=== PATIENT | female | born 1985 | race Caucasian/White ===

== ENCOUNTER 2024-12-07 13:12 | Outpatient (REF) | payer OTHER, SELFPAY ==
--- OUTSIDE RECORDS SUMMARY | 2024-12-07 11:30 | XMS_ITS | Encounter Summary ---
Author Organization [facility] Address [address] [place] [address] Care Team Providers Care Tool Repairer Name Role Phone Unavailable Primary Care Provider Unavailabl e Reason for Visit * Reason Comments EMBX Encounter Details Date Type Department Care Team ([facility] st Contact Info) Description 12/07/2024 11:30 AM EDT Procedure Visit [facility] [address] [place] [address] Gregory Dutton DO [address] [facility] [address] [place] [address] Enlarged uterus; Abnormal menstruation Social History Tobacco Use Types Packs/Day Years Used Date Smoking Tobacco: Never Assessed Comments No Sex and Gender Information Value Date Recorded Sex Assigned at Not on file Legal Sex Female 9:05 AM EDT Gender Identity Not on file Sexual Orientation Not on file documented as of this encounter Last Filed Vital Signs Vital Sign Reading Time Taken Comments Blood Pressure 110/72 12/07/2024 11:36 AM EDT Pulse - - Temperature - - Respiratory Rate - - Oxygen Saturation - - Inhaled Oxygen Concentration - - Weight 60.1 kg (132 lb 8 oz) 12/07/2024 11:36 AM EDT Height - - Body Mass Index - - documented in this encounter Progress Notes * gT Nicole LPN - 12/07/2024 11:30 AM EDTAssociated Order(s): Endometrial biopsy Post-Procedure Diagnose(s): Enlarged uterus; Abnormal menstruation Reason for Appointment: Patient ID: Ashley [place]ock is a 38 y.o. female who presents for EMBX Patient presents today for a Endometrial Biopsy appointment. MEDICATIONS Current Outpatient Medications Medication Instructions cetirizine (ZYRTEC) 10 mg, Daily RT meclizine (ANTIVERT) 25 mg, 3 times daily PRN midodrine (PROAMATINE) 5 mg, 3 times daily Multiple Vitamins-Minerals (Daily Vitamin Formula+Minerals) tablet Protonix 40 MG EC tablet ALLERGIES Allergies Allergen Reactions Clarithromycin Swelling Other Reaction(s): Throat swelling Tongue swelling PROBLEMS Active Ambulatory Problems Diagnosis Date Noted No Active Ambulatory Problems Resolved Ambulatory Problems Diagnosis Date Noted No Resolved Ambulatory Problems Past Medical History: Diagnosis Date Bleeding ulcer HISTORY PAST MEDICAL HISTORY SOCIAL HISTORY Past Medical History: Diagnosis Date Bleeding ulcer Social History Tobacco Use Smoking status: Not on file Smokeless tobacco: Not on file Substance Use Topics Alcohol use: Not on file Drug use: Not on file FAMILY HISTORY Family History Problem Relation Name Age of Onset Diabetes Mother Other (heart issues) Maternal Grandfather SURGICAL HISTORY Past Surgical History: Procedure Laterality Date CHOLECYSTECTOMY GASTRIC BYPASS 2020 or 2021 MR ANGIOGRAM PELVIS W AND WO IV CONTRAST 11/16/2022 MR ANGIOGRAM PELVIS W AND WO IV CONTRAST 11/16/2022 REVIEW OF SYSTEMS Review of Systems: Review of Systems Genitourinary: Positive for menstrual problem, pelvic pain and vaginal bleeding. OBJECTIVE Objective: Physical Exam Constitutional: Appearance: Normal appearance. She is well-developed. Genitourinary: Vulva normal. Cardiovascular: Rate and Rhythm: Normal rate and regular rhythm. Pulmonary: Effort: Pulmonary effort is normal. Breath sounds: Normal breath sounds. Abdominal: General: Bowel sounds are normal. There is no distension. Palpations: Abdomen is soft. Tenderness: There is no abdominal tenderness. There is no guarding or rebound. Musculoskeletal: General: No swelling. Normal range of motion. Right lower leg: No edema. Left lower leg: No edema. Neurological: Mental Status: She is alert and oriented to person, place, and time. Skin: General: Skin is warm and dry. Psychiatric: Mood and Affect: Mood normal. Behavior: Behavior normal. Vitals and nursing note reviewed. Exam conducted with a content specialist present. Vitals: There is no height or weight on file to calculate BMI. BP: 110/72 Patient's last menstrual period was 12/01/2024. ASSESSMENT & PLAN Assessment/Plan Encounter Diagnosis: ICD-10-CM 1. Enlarged uterus N85.2 POCT , urine manually resulted US Pelvis w/ TV 2. Abnormal menstruation N92.6 POCT , urine manually resulted US Pelvis w/ TV Endometrial biopsy Date/Time: 12/07/2024 12:00 PM Performed by: Gregory Dutton DO Authorized by: Gregory Dutton DO Consent: Consent obtained: written Consent given by: patient Patient agrees, verbalizes understanding, and wants to proceed: yes Pre-procedure: Urine test: negative Procedure: Tenaculum used: yes A local block was performed: no Cervix dilated: no Number of passes: 1 Findings: Uterus depth by sound (cm): 9 Specimen collected: specimen collected and sent to pathology EMBX: Patient was placed in dorsal lithotomy position with feet in stirrups. A sterile speculum was placed into the vagina and the cervix was visualized. The cervix was grasped with a single tooth tenaculum. The endometrial pipette was placed through the cervix into the uterus, endometrial curettage was performed and sampling was obtained, endometrial curettings were placed in formalin, and single tooth tenaculum was removed. Excellent hemostasis was assured. All instruments were removed from vagina. Follow Up: Patient is to return in 6 months for follow up ultrasound. Documented by Tg Nicole LPN on behalf of: Gregory Dutton DO documented in this encounter Plan of Treatment Upcoming Encounters Date Type Department Care Team (Late st Contact Info) Description 04/07/2025 1:00 PM EST Office Visit [facility] [address] [place] [address] Gregory Dutton DO [address] [place] [address] Scheduled Orders Name Type Priority Associated Diagnoses Orde r Schedule US Pelvis w/ TV Imaging Routine Enlarged uterus Abnormal menstruation Expected: 12/07/2024, Expires: 06/09/2025 documented as of this encounter Procedures Procedure Name Priority Date/Time Associated Diagnosis Comments ENDOMETRIAL BIOPSY Routine 12/07/2024 12 :00 PM EDT Enlarged uterus Abnormal menstruation POCT , URINE Routine 12/07/2024 11:40 AM EDT Enlarged uterus Abnormal menstruation documented in this encounter Results * Endometrial biopsy (12/07/2024 12:00 PM EDT) Narrative Tg Nicole LPN - 12/07/2024 12:00 PM EDT Tg Nicole LPN 12/07/2024 1:42 PM Endometrial biopsy Date/Time: 12/07/2024 12:00 PM Performed by: Gregory Dutton DO Authorized by: Gregory Dutton DO Consent: Consent obtained: written Consent given by: patient Patient agrees, verbalizes understanding, and wants to proceed: yes Pre-procedure: Urine test: negative Procedure: Tenaculum used: yes A local block was performed: no Cervix dilated: no Number of passes: 1 Findings: Uterus depth by sound (cm): 9 Specimen collected: specimen collected and sent to pathology Gregory Dutton DO IN CLINIC/BEDSIDE ORDERABLES Fin al Result * POCT , urine manually resulted (12/07/2024 11:40 AM EDT) Preg Test, Ur Negative Negative Urine 12/07/2024 11:4 0 AM EDT Gregory Dutton DO POINT OF CARE TEST ENTER/EDIT OR DERABLES Final Result documented in this encounter Visit Diagnoses Diagnosis Enlarged uterus Hypertrophy of uterus Abnormal menstruation Unspecified disorder of menstruation and other abnormal bleeding from female genital tract documented in this encounter
--- OUTSIDE RECORDS SUMMARY | 2024-12-09 13:14 | XMS_ITS | Clinical Summary ---
Author Organization [employer] Sys tem Address [facility] [id number] [address] [place] [address] Care Team Providers Care Sap Functional Analyst Name Role Phone Dyana Velazquez APRN-[employer] Primary Care Provide r Allergies Active Allergy Reactions Criticality Noted Date Comments Clarithromycin Swelling High 02/19/2017 Tongue swelling Medications albuterol (PROVENTIL HFA;VENTOLIN HFA) 90 mcg/actuation inhaler Inhale 2 puffs every 6 (six) hours as needed. Active pantoprazole (PROTONIX) 40 mg EC tablet 03/05/2022 Active meclizine (ANTIVERT) 25 mg tablet Take 1 tablet (25 mg total) by mouth 3 (three) times a day as needed for dizziness. 30 tablet 02/12/2024 Active midodrine (PROAMATINE) 5 mg tablet Take 1 tablet (5 mg total) by mouth 3 (three) times a day. 270 tablet 3 04/27/2024 Active cetirizine (ZyrTEC) 10 mg tablet Take 1 tablet (10 mg total) by mouth in the morning. 30 tablet 2 10/30/2024 Active Active Problems Problem Noted Date Diagnosed Date Postcoital bleeding 10/11/2022 Chronic SI joint pain 10/11/2022 Bony sclerosis 10/11/2022 Pelvic congestion 10/11/2022 History of Wero-en-Y gastric bypass 04/17/2022 Overview (04/17/2022): 03/06/21 Dr. 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 03/11/20 Carpal tunnel syndrome on both sides 03/11/2020 Hx of tubal ligation 02/19/2017 Overview (02/19/2017): 2016 PCOS (polycystic ovarian syndrome) 02/19/2017 Overview (02/19/2017): Per patient report Fibromyalgia Asthma Resolved Problems Problem Noted Date Diagnosed Date Resolved Date Visual disturbance 03/11/2020 3 Encounters Date Type Department Care Team Description 11/16/2024 8:36 AM EDT - 11/16/2024 11:59 PM EDT Hospital Encounter [facility] - Ultrasound [address] [place] [phone] Abnormal menstrual cycle Discharge Disposition: Home 11/14/2024 Travel 11/09/2024 Results Follow-Up [facility] [address] [place] [address] Dyana Velazquez APRN-CNP Lipid profile 11/04/2024 Travel 10/30/2024 10:30 AM EDT Office Visit [facility] [address] [place] [address] Dyana Velazquez APRN-CNP Wellness examination (Primary Dx) 10/28/2024 Travel 10/27/2024 1:26 PM EDT - 10/27/2024 11:59 PM EDT Hospital Encounter [facility] - Cardiovascular [address] [place] [phone] Rahat Watson MD Syncope, unspecified syncope type Discharge Disposition: Home 10/27/2024 Results Follow-Up [facility] [address] [facility] [address] [place] [phone] Fabiola Hernandez, ANTHONY Echo complete W/O contrast 10/25/2024 Travel from Last 3 Months Family History Medical History Relation Name Comments Bleeding Disorder Brother Asthma Daughter Bleeding Disorder Daughter Crohn's disease Maternal Aunt Heart disease Maternal Grandfather Diabetes Mother Hypertension Mother Migraines Sister Asthma Son Bleeding Disorder Son Other Son horseshoe kidne y Breast cancer Neg Hx Colon cancer Neg Hx Ovarian cancer Neg Hx Uterine cancer Neg Hx Relation Name Status Comments Brother Alive Daughter Other Maternal Aunt Maternal Grandfather Mother Sister Alive Son Alive Social History Tobacco Use Types Packs/Day Years Used Date Smoking Tobacco: Former Cigarettes Smokeless Tobacco: Never Tobacco Cessation:Counseling Given: Not Answered Alcohol Use Standard Drinks/Week Comments Not Currently 0 (1 standard drink = 0.6 oz pur e alcohol) socially Overall Financial Resource Strain (CARDIA) Answe r Date Recorded How hard is it for you to pa y for the very basics like food, housing, medical care, and heating? Not hard at all 10/28/2024 PHQ-2 Answer Date Recorded Total Score 0 10/30/2024 PRAPARE - Transportation Answer Date Re corded In the past 12 months, has l ack of transportation kept you from medical appointments or from getting medications? No 12/2024 In the past 12 months, has l ack of transportation kept you from meetings, work, or from getting things needed for daily living? No 10/28/2024 Housing Instability Answer Date Recorde d Are you worried or concerned that in the next two months you may not have stable housing that you own, rent or stay in as a part of a household? No 10/28/2024 Childcare Answer Date Recorded Childcare Unknown 10/01/2018 Employment Answer Date Recorded Employment Unknown 10/01/2018 Hunger Screening Answer Date Recorded Within the past 12 months we worried whether our food would run out before we got money to buy more. Never True 10/30/2024 Within the past 12 months th e food we bought just didn't last and we didn't have money to get more. Never True 10/30/2024 Purpose - Life Answer Date Recorded Purpose and direction in life Unknown Comments No Sex and Gender Information Value Date Recorded Sex Assigned at Female 06/26/2022 9:43 PM EST Legal Sex Female 11:39 AM EDT Gender Identity Female 06/26/2022 9:43 PM EST Sexual Orientation Straight 06/26/2022 9: 43 PM EST Occupation Industry Job Start Date Job End Date unemployed Not on file Not on file Not on file Last Filed Vital Signs Vital Sign Reading Time Taken Comments Blood Pressure 106/66 10/30/2024 10:18 AM EDT Pulse 81 10/30/2024 10:18 AM EDT Temperature 36.8 C (98.2 F) 02/14/2023 8:25 AM EDT Respiratory Rate 16 10/30/2024 10:18 AM EDT Oxygen Saturation 98% 10/30/2024 10:18 AM EDT Inhaled Oxygen Concentration - - Weight 59.4 kg (131 lb) 10/30/2024 10:18 AM EDT Height 157.5 cm (5' 2 ) 10/30/2024 10:18 AM EDT Body Mass Index 23.96 10/30/2024 10:18 AM EDT Plan of Treatment Health Maintenance Due Date Last Done Comments Influenza Vaccine 12/21/2024 02/06/2022, , 02/22/2021, Additional history exists DTaP,Tdap and Td Vaccines (7 - Td or Tdap) 09/15/2025 09/16/2015, 07/28/1998, 11/28/1992, Additional history exists Adult BMI Screening 10/30/2025 10/30/2024 Depression Screening 10/30/2025 10/30/2024 Tobacco Screening 10/30/2025 10/30/2024 Pap Smear 02/11/2026 02/11/2023, 01/21, 02/11/2023, Additional history exists Medical Devices Not on file Procedures Procedure Name Priority Date/Time Associated Diagnosis Comments US PELVIC WITH TRANSVAGINAL Routine 11/16/2024 8:58 AM EDT Abnormal menstrual cycle TSH Routine 11/06/2024 9:33 AM EDT Irregular menstruation, unspecified HEMOGLOBIN A1C Routine 11/06/2024 9:33 AM EDT Irregular menstruation, unspecified LIPID PROFILE Routine 11/06/2024 9:33 AM EDT Wellness examination ECHO COMPLETE WO CONTRAST Routine 10/27/2024 2:07 PM EDT Syncope, unspecified syncope type VITAMIN B12 Routine 10/27/2024 1:03 PM EDT Bariatric surgery status Intestinal malabsorption, unspecified THIAMIN (VITAMIN B1), WB Routine 10/27/2024 1:03 PM EDT Bariatric surgery status Intestinal malabsorption, unspecified FOLATE Routine 10/27/2024 1:03 PM EDT Bariatric surgery status Intestinal malabsorption, unspecified VITAMIN D 25 HYDROXY Routine 10/27/2024 1:03 PM EDT Bariatric surgery status Intestinal malabsorption, unspecified FERRITIN Routine 10/27/2024 1:03 PM EDT Bariatric surgery status Intestinal malabsorption, unspecified IRON AND TIBC Routine 10/27/2024 1:03 PM EDT Bariatric surgery status Intestinal malabsorption, unspecified PHOSPHORUS Routine 10/27/2024 1:03 PM EDT Bariatric surgery status Intestinal malabsorption, unspecified MAGNESIUM Routine 10/27/2024 1:03 PM EDT Bariatric surgery status Intestinal malabsorption, unspecified COMPREHENSIVE METABOLIC PANEL Routine 10/27/2024 1:03 PM EDT Bariatric surgery status Intestinal malabsorption, unspecified CBC WITH AUTO DIFFERENTIAL Routine 10/27/2024 1:03 PM EDT Bariatric surgery status Intestinal malabsorption, unspecified HIGH RISK HPV W/CARMITA Routine 02/11/2023 4:46 AM EDT Pap smear, as part of routine gynecological examination from Last 3 Months or Most Recently Relevant to Health Maintenance Results * Ultrasound pelvic with transvaginal (11/16/2024 8:58 AM EDT) Anatomical Region Laterality Modality Body, Pelvis Ultrasound 11/17/2024 9:55 AM EDT Narrative 11/17/2024 10:19 AM EDT US PELVIC WITH TRANSVAGINAL HISTORY: Abnormal menstrual cycle. Abnormal vaginal bleeding. Last known menstrual period reported last month COMPARISON: Pelvic ultrasound 06/25/2022. CT abdomen and pelvis 06/27/2022. MRV of the pelvis 11/08/2022. TECHNIQUE: Transabdominal and transvaginal sonographic evaluation of the pelvis. Transabdominal imaging performed to evaluate for extra adnexal pelvic pathology. Transvaginal imaging performed for better delineation of the adnexal and endometrial contents. Color Doppler used. FINDINGS: Uterus: Measures 14.3 x 4.4 x 5.5 cm. Uterus is retroverted on transvaginal images. Small volume free fluid in the pelvic cul-de-sac, likely physiologic. Several nabothian cysts adjacent to the cervix. Endometrial Thickness: The endometrium is fairly homogenously echogenic, measuring 1.8 cm in thickness. No evidence for endometrial mass or distortion. Right Ovary: Follicular appearance of the right ovary. The right ovary measures 1.6 x 0.8 x 1.1 cm. Color Doppler flow visualized. Left Ovary: Follicular appearance of the left ovary. The left ovary measures 4.9 x 2.1 x 2.2 cm. Color Doppler flow visualized. Prominent vascularity in bilateral adnexal regions which is similar to prior comparison imaging. IMPRESSION: * Endometrium is homogenously echogenic, measuring up to 1.8 cm in thickness. No evidence for endometrial mass or abnormal morphology. * Prominent vascularity in bilateral adnexal regions which is similar to prior comparison imaging. Approved by Resident Rashawn Way MD on 11/17/2024 9:55 AM Sal Santiago MD have personally reviewed the image(s) and agree with and/or edited the report Finalized by Sal Navarro MD on 11/17/2024 10:19 AM Procedure Note Sal Navarro MD - 11/17/2024 US PELVIC WITH TRANSVAGINAL HISTORY: Abnormal menstrual cycle. Abnormal vaginal bleeding. Last knownmenstrual period reported last month COMPARISON: Pelvic ultrasound 06/25/2022. CT abdomen and pelvis 06/27/2022.MRV of the pelvis 11/08/2022. TECHNIQUE: Transabdominal and transvaginal sonographic evaluation of thepelvis. Transabdominal imaging performed to evaluate for extra adnexalpelvic pathology. Transvaginal imaging performed for better delineationof the adnexal and endometrial contents. Color Doppler used. FINDINGS: Uterus: Measures 14.3 x 4.4 x 5.5 cm. Uterus is retroverted ontransvaginal images. Small volume free fluid in the pelvic cul-de-sac,likely physiologic. Several nabothian cysts adjacent to the cervix. Endometrial Thickness: The endometrium is fairly homogenously echogenic,measuring 1.8 cm in thickness. No evidence for endometrial mass ordistortion. Right Ovary: Follicular appearance of the right ovary. The right ovarymeasures 1.6 x 0.8 x 1.1 cm. Color Doppler flow visualized. Left Ovary: Follicular appearance of the left ovary. The left ovarymeasures 4.9 x 2.1 x 2.2 cm. Color Doppler flow visualized. Prominent vascularity in bilateral adnexal regions which is similar toprior comparison imaging. IMPRESSION: * Endometrium is homogenously echogenic, measuring up to 1.8 cm inthickness. No evidence for endometrial mass or abnormal morphology. * Prominent vascularity in bilateral adnexal regions which is similar toprior comparison imaging. Approved by Resident Rashawn aWy MD on 11/17/2024 9:55 AM ISal MD have personally reviewed the image(s) and agree withand/or edited the report Finalized by Sal Navarro MD on 11/17/2024 10:19 AM us Gregory R Marija DO G US ORDERABLES Final Result * TSH (11/06/2024 9:33 AM EDT) TSH 2.46 0.49 - 4.67 uIU/mL 11/06/2024 2:00 PM EDT [facility] Blood Venous blood / Unknown Venipuncture / Unknown 11/06/2024 9:33 AM EDT 11/06/2024 9:34 AM EDT us Gregory R Marija DO LAB BLOOD ORDERABLES Final Resu lt [facility] [address] [place] [address], * Hemoglobin A1c (11/06/2024 9:33 AM EDT) HEMOGLOBIN A1C 5.3 4.4 - 5.6 % 11/06/2024 1:45 PM EDT [facility] Comment: ADA Guidelines Result HgbA1c Normal : less than 5.7 % Prediabetes : 5.7 % to 6.4 % Diabetes : > 6.4 % Use with caution in patients with abnormal hemoglobin variants as the half-life of red blood cells and in vivo glycation rates are affected. EST. AVERAGE GLUCOSE 105 mg/dL 11/06/2024 1:45 PM EDT [facility] Blood Venous blood / Unknown Venipuncture / Unknown 11/06/2024 9:33 AM EDT 11/06/2024 9:34 AM EDT us Gregory Dutton DO LAB BLOOD ORDERABLES Final Resu lt [facility] [address] [place] [address], * (ABNORMAL) Lipid profile (11/06/2024 9:33 AM EDT) CHOLESTEROL 135(L) 150 - 200 mg/dL 11/06/2024 2:04 PM EDT [facility] TRIGLYCERIDE 79 27 - 150 mg/dL 11/06/2024 2:04 PM EDT [facility] HDL CHOLESTEROL 61 >39 mg/dL 2:04 PM EDT [facility] Comment: HDL <40 mg/dL - High Risk HDL > or = 40mg/dL- Desirable HDL >60 mg/dL - Negative Risk LDL (CALC) 58 <130 mg/dL 11/06/2024 2:04 PM EDT [facility] Comment: LDL <100 mg/dL - Desirable LDL >160 mg/dL - High Risk CHOLESTEROL:HDL 2.2 1.0 - 5.0 2:04 PM EDT [facility] VERY LOW LIPOPROTEIN 16 0 - 30 mg/dL 11/06/2024 2:04 PM EDT [facility] Blood Venous blood / Unknown Venipuncture / Unknown 11/06/2024 9:33 AM EDT 11/06/2024 9:34 AM EDT us Dayna Velazquez COUNTER [employer] LAB BLOOD ORDERABLES Final Result [facility] [address] [place] [address], [place] [phone] * Echo complete W/O contrast (10/27/2024 2:07 PM EDT) LVOT stroke volume 53.11 ml XCELERA LV Systolic Volume 30.50 mL XCELERA EF 65 % XCELERA FS 40 28 - 44 % XCELERA LV Diastolic Volume 87.40 mL XCELERA LVIDd 4.08 cm XCELERA LVIDs 2.45 cm XCELERA IVS 0.78 0.6 - 1.1 cm XCELERA PW 0.65 0.6 - 1.1 cm XCELERA LVOT diameter 1.70 cm XCELERA TDI 17.60 cm/s XCELERA MV TDI E' (medial) 12.80 cm/s XCELERA LA Volume Index 28.8 mL/m2 XCELERA E/A ratio 1.68 XCELERA E wave deceleration time 225.00 msec XCELERA MV Peak E Myke 84.90 cm/s XCELERA MV Peak A Myke 50.40 cm/s XCELERA LA size 3.50 cm XCELERA Aortic root 2.40 cm XCELERA LA volume 46.60 cm3 XCELERA RV diastolic dimension (basal) 27.1 mm XCELERA TAPSE 2.25 cm XCELERA AV peak myke 126.00 cm/s XCELERA LVOT peak myke 1.21 m/s XCELERA AV VTI 26.60 cm XCELERA LVOT peak VTI 23.40 cm XCELERA AV mean gradient 4.00 mmHg XCELERA AV peak gradient 6.35 mmHg XCELERA AV valve area 2.00 XCELERA Valve area - Index 1.2 XCELERA MV pressure 1/2 time 66.00 ms XCELERA MV valve area p 1/2 method 3.33 cm2 XCELERA TR Peak Myke 2.8 m/s XCELERA TR peak gradient 32.00 mmHg XCELERA LV ESV A2C 53.20 mL XCELERA LV ESV A4C 33.10 mL XCELERA LV RWT 2D 31.67 XCELERA Echo EF Estimated 65 % XCELERA AV Velocity Ratio 0.88 XCELERA Left Ventricle Mass 83.701936 [id number] g XCELERA Interventricular Septum Diastolic Thickness by 2D 7.82 cm XCELERA TASV 21.6 cm/s XCELERA Est. RA pressure 3 mmHg XCELERA RA area 13.2 cm2 XCELERA Anatomical Region Laterality Modality Chest N/A Ultrasound Narrative 10/27/2024 3:26 PM EDT Left Ventricle: Left ventricle appears normal in size. Systolic function is normal with an ejection fraction of 65-70%. The quantitative EF by 2D Koch biplane is 65%. Left Ventricle Left ventricle appears normal in size. Wall thickness is normal. Systolic function is normal with an ejection fraction of 65-70%. The quantitative EF by 2D Koch biplane is 65%. No obvious regional wall motion abnormalities. Lateral E' is 17.60 cm/s. Medial E' is 12.80 cm/s. Right Ventricle Right ventricular size appears normal. The right ventricular basal diameter is 27.1 mm. Systolic function is normal. Left Atrium Left atrium volume index is normal. The left atrial volume index is 28.8 mL/m2. Right Atrium Right atrium is normal in size. The right atrial area is 13.2 cm2. IVC/SVC The right atrial pressure is estimated at 3 mmHg. IVC appears normal. There is normal collapse with deep inspiration. Mitral Valve Mitral valve structure is normal. There is mild to moderate regurgitation. There is no evidence of mitral valve stenosis. Tricuspid Valve Tricuspid valve appears to be normal. There is mild regurgitation. RVSP is based on RA pressure of 3 mmHg. Aortic Valve The aortic valve was not well visualized. Probable trileaflet aortic valve. There is no regurgitation or stenosis. Pulmonic Valve The pulmonic valve was not well visualized. There is no regurgitation. Ascending Aorta The aortic root is normal in size. Pericardium There is no pericardial effusion. Study Details A complete echo was performed using complete 2D, color flow Doppler and spectral Doppler. Overall the study quality was adequate. Wall Scoring Baseline Score Index: 1.00 The left ventricular wall motion is normal. us Rahat Watson MD CV ECHO ORDERABLES Final Resu lt * Thiamin (Vitamin B1), WB (10/27/2024 1:03 PM EDT) [facility] THIAMIN (VITAMIN B1), WB 106 70 - 180 nmol/L 10/29/2024 10:17 AM EDT [facility] Comment: ADDITIONAL INFORMATION This test was developed and its performance characteristics determined by [facility] in a manner consistent with CLIA requirements. This test has not been cleared or approved by the U.S. Food and Drug Administration. Test Performed by: [facility] [address] [place] [address] Cartoonist Special Effects: Ray Baron Ph.D.; CLIA# [id number] Blood Venous blood / Unknown Venipuncture / Unknown 10/27/2024 1:03 PM EDT 10/27/2024 1:03 PM EDT us Nano Trevizo COUNTER [employer]ERK [employer] LAB BLOOD ORDERABLES Fin al Result [facility] [address] [place] [address], * CBC auto differential (10/27/2024 1:03 PM EDT) [facility] WBC 5.7 4 - 11 x10E9/L 10/27/2024 6:48 PM EDT [facility] RBC Count 4.42 3.8 - 5.2 X10E12/L 10/27/2024 6:48 PM EDT [facility] Hemoglobin 12.5 11.7 - 15.5 g/dL 10/27/2024 6:48 PM EDT [facility] Hematocrit 37.4 35 - 47 % 10/27/2024 6:48 PM EDT [facility] MCV 85 80 - 100 fL 10/27/2024 6:48 PM EDT [facility] MCH 28.4 27 - 34 pg 10/27/2024 6:48 PM EDT [facility] MCHC 33.5 32 - 36 g/dL 10/27/2024 6:48 PM EDT [facility] RDW 14.1 11.5 - 15 % 10/27/2024 6:48 PM EDT [facility] Platelet Count 294 150 - 450 X10E9/L 10/27/2024 6:48 PM EDT [facility] MPV 9.1 7 - 12 fL 10/27/2024 6:48 PM EDT [facility] Neutrophils % 65.2 % 10/27/2024 6:48 PM EDT [facility] Lymphocytes % 25.6 % 10/27/2024 6:48 PM EDT [facility] Monocytes % 7.9 % 10/27/2024 6:48 PM EDT [facility] Eosinophils % 0.8 % 10/27/2024 6:48 PM EDT [facility] Basophils % 0.5 % 10/27/2024 6:48 PM EDT [facility] Neutrophils Absolute (A) 3.7 1.5 - 6.6 10*3/uL 10/27/2024 6:48 PM EDT [facility] Lymphocytes Absolute 1.5 1.0 - 3.5 10*3/uL 10/27/2024 6:48 PM EDT [facility] Monocytes Absolute 0.5 0.0 - 0.9 10*3/uL 10/27/2024 6:48 PM EDT [facility] Eosinophils Absolute 0.0 0.0 - 0.4 10*3/uL 10/27/2024 6:48 PM EDT [facility] Basophils Absolute 0.0 0.0 - 0.2 10*3/uL 10/27/2024 6:48 PM EDT [facility] Differential Type AUTOMATED DIFFERENTIAL 10/27/2024 6:48 PM EDT [facility] Blood Venous blood / Unknown Venipuncture / Unknown 10/27/2024 1:03 PM EDT 10/27/2024 1:03 PM EDT [facility] B[facility] ORDER[facility] Fin al Result Performing Organization Address City/[facility]/ZIP Co de Phone Number [facility] [address] [place] [address], * (ABNORMAL) Iron and TIBC (10/27/2024 1:03 PM EDT) IRON 49(L) 50 - 170 ug/dL 10/27/2024 7:06 PM EDT [facility] TRANSFERRIN 313 168 - 336 mg/dL 10/27/2024 7:06 PM EDT [facility] IRON BINDING 438(H) 250 - 425 ug/dL 10/27/2024 7:06 PM EDT [facility] IRON SATURATION 11(L) 15 - 50 % SATURATION 10/27/2024 7:06 PM EDT [facility] Blood Venous blood / Unknown Venipuncture / Unknown 10/27/2024 1:03 PM EDT 10/27/2024 1:03 PM EDT Nano Trevizo [facility]ERK [facility] LAB BLOOD ORDERABLES Fin al Result [facility] [address] [place] [address], [place] [phone] * (ABNORMAL) Vitamin D 25 hydroxy (10/27/2024 1:03 PM EDT) VITAMIN D 25 HYD TOT 17.9(L) 30.0 - 100.0 ng/mL 10/27/2024 7:23 PM EDT [facility] Blood Venous blood / Unknown Venipuncture / Unknown 10/27/2024 1:03 PM EDT 10/27/2024 1:03 PM EDT Narrative [facility] - 10/27/2024 7:23 PM EDT Vitamin D status 25 [place] Vitamin D Deficiency <20 ng/mL Insufficiency 20-29 ng/mL Sufficiency 30-100 ng/mL Toxicity >100 ng/mL NOTE: A pediatric reference range has not been established by the laborer beam house of this kit. The [place] [employer] recommends a Vitamin D level of = or >20ng/mL in infants and children. Nano Trevizo [facility] LAB BLOOD ORDERABLES Fin al Result [facility] [address] [place] [address], * Phosphorus (10/27/2024 1:03 PM EDT) [facility] PHOSPHORUS 3.9 2.4 - 4.9 mg/dL 10/27/2024 7:06 PM EDT [facility] Blood Venous blood / Unknown Venipuncture / Unknown 10/27/2024 1:03 PM EDT 10/27/2024 1:03 PM EDT [facility] BLOOD ORDERABLES Fin al Result [facility] [address] [place] [address], [place] [phone] * Magnesium (10/27/2024 1:03 PM EDT) Pathologist [facility] MAGNESIUM 2.3 1.8 - 2.6 mg/dL 10/27/2024 7:06 PM EDT [facility] Blood Venous blood / Unknown Venipuncture / Unknown 10/27/2024 1:03 PM EDT 10/27/2024 1:03 PM EDT Nano Trevizo COUNTER CLERK [employer] LAB BLOOD ORDERABLES Fin al Result [facility] [address] [place] [address], * Folate (10/27/2024 1:03 PM EDT) [facility] FOLIC ACID >25.0 >5.8 ng/mL 10/27/2024 7:19 PM EDT [facility] Blood Venous blood / Unknown Venipuncture / Unknown 10/27/2024 1:03 PM EDT 10/27/2024 1:03 PM EDT Nano Trevizo COUNTER CLERK [employer] LAB BLOOD ORDERABLES Fin al Result [facility] [address] [place] [address], [place] [phone] * (ABNORMAL) Ferritin (10/27/2024 1:03 PM EDT) [facility] FERRITIN 8(L) 11 - 307 ng/mL 10/27/2024 7:16 PM EDT [facility] Blood Venous blood / Unknown Venipuncture / Unknown 10/27/2024 1:03 PM EDT 10/27/2024 1:03 PM EDT Nano Trevizo COUNTER [employer]ERK [employer] LAB BLOOD ORDERABLES Fin al Result [facility] [address] [place] [address], [place] [phone] * Vitamin B12 (10/27/2024 1:03 PM EDT) Pathologist [facility] VITAMIN B12 204 180 - 914 pg/mL 10/27/2024 7:20 PM EDT [facility] Blood Venous blood / Unknown Venipuncture / Unknown 10/27/2024 1:03 PM EDT 10/27/2024 1:03 PM EDT Nano Trevizo COUNTER CLERK [employer] LAB BLOOD ORDERABLES Fin al Result [facility] [address] [place] [address], [place] [phone] * Comprehensive metabolic panel (10/27/2024 1:03 PM EDT) [facility] SODIUM 141 134 - 146 mmol/L 10/27/2024 7:06 PM EDT [facility] POTASSIUM 4.5 3.5 - 5.0 mmol/L 10/27/2024 7:06 PM EDT [facility] CHLORIDE 107 98 - 109 mmol/L 10/27/2024 7:06 PM EDT [facility] CARBON DIOXIDE 25 22 - 32 mmol/L 10/27/2024 7:06 PM EDT [facility] ANION GAP 9 5 - 15 mmol/L 10/27/2024 7:06 PM EDT [facility] BLOOD UREA NITROGEN 15 5 - 23 mg/dL 10/27/2024 7:06 PM EDT [facility] CREATININE 0.78 0.40 - 1.00 mg/dL 10/27/2024 7:06 PM EDT [facility] Comment:METHOD TRACEABLE TO IDMS STANDARD GLUCOSE 93 65 - 99 mg/dL 10/27/2024 7:06 PM EDT [facility] CALCIUM 9.4 8.5 - 10.5 mg/dL 10/27/2024 7:06 PM EDT [facility] TOTAL PROTEIN 7.3 6.0 - 8.0 g/dL 10/27/2024 7:06 PM EDT [facility] ALBUMIN 4.7 3.2 - 5.3 g/dL 10/27/2024 7:06 PM EDT [facility] ALKALINE PHOSPHATASE 68 39 - 130 U/L 10/27/2024 7:06 PM EDT [facility] AST 22 <=41 U/L 10/27/2024 7:06 PM EDT [facility] ALT 27 <=31 U/L 10/27/2024 7:06 PM EDT [facility] BILIRUBIN,TOTAL 0.4 0.3 - 1.2 mg/dL 10/27/2024 7:06 PM EDT [facility] EGFR Non-Race Dependent >90 >=60 ml/min/1.7 3sq.m 10/27/2024 7:06 PM EDT [facility] Comment: Reported eGFR is based on the CKD-EPI 2020 equation that does not use a race coefficient. Blood Venous blood / Unknown Venipuncture / Unknown 10/27/2024 1:03 PM EDT 10/27/2024 1:03 PM EDT us [employer] COUNTER CLERK [employer] LAB BLOOD ORDERABLES Fin al Result [facility] [address] [place] [address], * High risk HPV w/carmita (02/11/2023 4:46 AM EDT) Hpv specimen type ThinPrep 02/12/2023 4:47 AM EDT [facility] Hpv 16 Negative Negative^N egative 02/13/2023 6:03 AM EDT [facility] Hpv 18 Negative Negative^N egative 02/13/2023 6:03 AM EDT [facility] Other high risk hpv Negative Negative^N egative 02/13/2023 6:03 AM EDT [facility] Comment: HPV types 31,33,35,39,45,52,56,58,59,66 and 68 DNA were undetectable. THINP 02/11/2023 4:46 AM EDT 02/12/2023 4:47 AM EDT us Ana María Kinney MD LAB BLOOD ORDERABLES Final Res ult [facility] [address] [place] [address] [facility] [address] [facility], [address] [place] [address] from Last 3 Months or Most Recently Relevant to Health Maintenance Insurance [place] [employer] [facility] Care Teams Sap Functional Analyst Relationship Specialty Start Date End Date Dyana Velazquez APRN-CNP [address] [place] [address] PCP - General Family Medicine 06/25/23
--- OUTSIDE RECORDS SUMMARY | 2024-12-09 13:14 | XMS_ITS | Encounter Summary ---
Author Organization [employer] Address [id number] [address] [place] [address] Care Team Providers Care Right Of Way Buyer Name Role Phone Dyana Velazquez TRADE ANALYST-BATT MACHINE OPERATOR Primary Care Provide r Encounter Details Date Type Department Care Team (Late st Contact Info) Description 02/15/[address] [facility] [address] [place] [phone] Savage Bentley MD [address] [place] [address] Social History Tobacco Use Types Packs/Day Years Used Date Smoking Tobacco: Former Cigarettes Q uit: 2012 Smokeless Tobacco: Never Alcohol Use Standard Drinks/Week Comments No 0 (1 standard drink = 0.6 oz pur e alcohol) PHQ-2 Answer Date Recorded Total Score 0 09/27/2020 Childcare Answer Date Recorded Childcare Unknown 10/01/2018 Employment Answer Date Recorded Employment Unknown 10/01/2018 Purpose - Life Answer Date Recorded Purpose [...] file Not on file Not on file documented as of this encounter Plan of Treatment Not on file documented as of this encounter Visit Diagnoses Not on filedocumented in this encounter Additional Health Concerns Assessment Noted Time PHQ-9 Depression Total Score: 0 09/28/19 21 2:00 PM EDT documented as of this encounter Care Teams Right Of Way Buyer Relationship Specialty Start Date End Date Dyana Velazquez APRN-BATT MACHINE OPERATOR [address] [place] [address] PCP - General Family Medicine 06/25/23 documented as of this encounter
--- OUTSIDE RECORDS SUMMARY | 2024-12-09 13:14 | XMS_ITS | Encounter Summary ---
Author Organization [employer] Address [facility][id number] [address] [place] [address] Care Team Providers Care Informatica Name Role Phone Dyana Velazquez POWER PLANT ENGINEER-ACID DUMPER Primary Care Provide r Encounter Details Date Type Department Care Team (Late st Contact Info) Description 10/10/2020 Orders Only [facility] [address] [place] [address] Ref Prov, [place] [address] Social History Tobacco Use Types Packs/Day Years Used Date Smoking Tobacco: Former Cigarettes Q uit: 2011 Smokeless Tobacco: Never Alcohol Use Standard Drinks/Week [...] file Not on file Not on file COVID-19 Exposure Response Date Recorded In the last month, have you been in contact with someone who was confirmed or suspected to have Coronavirus / COVID-19? No / Unsure 09/27/2020 3:14 PM EDT documented as of this encounter Plan of Treatment Not on file documented as of this encounter Procedures Procedure Name Priority Date/Time Associated Diagnosis Comments WBC Routine 10/10/2020 documented in this encounter Results * WBC (10/10/2020) us Not In System Ref Prov LAB BLOOD ORDERABLES Alisia l Result MANUALLY TRANSCRIBED RESULTS documented in this encounter Visit Diagnoses Not on filedocumented in this encounter Additional Health Concerns Assessment Noted Time PHQ-9 Depression Total Score: 0 09/28/19 21 2:00 PM EDT documented as of this encounter Care Teams Informatica Relationship Specialty Start Date End Date Dyana Velazquez APRN-ACID DUMPER [address] [place] [address] PCP - General Family Medicine 06/25/23 documented as of this encounter
--- OUTSIDE RECORDS SUMMARY | 2024-12-09 13:14 | XMS_ITS | Encounter Summary ---
Author Organization [facility] Address [address] [place] [address] Care Team Providers Care Community Support Worker Name Role Phone Unavailable Primary Care Provider Unavailabl e Encounter Details Date Type Department Care Team (Late Contact Info) Description 11/17/2024 Abstract LOLA SANTACRUZ [address] [facility] [place] [phone] Tg Nicole LPN Social History Tobacco Use Types Packs/Day Years Used Date Smoking Tobacco: Never Assessed Comments No Sex and Gender Information Value Date Recorded Sex Assigned at Not on file Legal Sex Female 9:05 AM EDT Gender Identity Not on file Sexual Orientation Not on file documented as of this encounter Plan of Treatment Upcoming Encounters Date Type Department Care Team (Late Contact Info) Description 04/07/2025 1:00 PM EST Office Visit LOAL SANTACRUZ [address] [facility] [place] [address] Gregory Dutton DO [address] [place] [address] Dr Nakia [place], [facility]11 documented as of this encounter Visit Diagnoses Not on filedocumented in this encounter
--- OUTSIDE RECORDS SUMMARY | 2024-12-09 13:14 | XMS_ITS | Encounter Summary ---
Author Organization [facility] Address [address] [place] [address] Care Team Providers Care Hull Outfit Supervisor Name Role Phone Unavailable Primary Care Provider Unavailabl e Encounter Details Date Type Department Care Team (Late Contact Info) Description 11/18/2024 Abstract LOLA SANTACRUZ [address] [place] [phone] Gregory Dutton DO [address], [facility]11 Social History Tobacco Use Types Packs/Day Years [...] Description 04/07/2025 1:00 PM EST Office Visit LOLA SANTACRUZ [address] [place] [phone] Gregory Dutton DO [address], [facility]11 documented as of this encounter Visit Diagnoses Not on filedocumented in this encounter
--- OUTSIDE RECORDS SUMMARY | 2024-12-09 13:14 | XMS_ITS | Patient Health Record ---
Author Organization [facility] Address [address] [place] [address] [place] [address] [place] [address] Care Team Providers Care Natural Resources Technician Name Role Phone LYRIC HENRY Unavailable [phone] Gurpreet Maza Unavailable Unavailable Allergies Allergen (clinical drug ingredient) Drug/Non Drug Allergy documented on EMR Reaction Allergy Type Onset Date Status Biaxin Unknown Drug Allergy Active Reason For Referral No Information Medications Medication SIG (Take, Route, Frequency, Duration) Notes Start Date End Date Status Flovent Diskus 50 MCG/BLIST 1 puff Inhalation Twice a day Active Albuterol Sulfate HFA 108 (90 Base) MCG/ACT 2 puffs as needed Inhalation every 6 hrs Active Social History Tobacco Use: Social History Observation Description Date Details (start date - stop date) Never Smoker NA - NA Tobacco Use/Smoking Question Answer Notes Are you a nonsmoker Problems Problem Type SNOMED Code ICD Code Onset Dates Problem Status W/U Status Risk Notes Problem Polycystic ovary syndrome (disorder) (189755482) Polycystic ovarian syndrome (E28.2) Active confirmed Problem Fibromyalgia (966914779) Fibromyalgia (M79.7) Active confirmed Problem Identification of preoperative respiratory status (160732704) Encounter for preprocedural respiratory examination (Z01.811) Active confirmed Problem Obstructive sleep apnea syndrome (22410551) LILI (obstructive sleep apnea) (G47.33) Active confirmed Problem Asthma (651241696) Asthma (J45.909) Active conf irmed Problem Gastroesophageal reflux disease (743780667) GERD without esophagitis (K21.9) Active confirmed Plan Of Treatment Pending Test Test Name Order Date CPAP/BIPAP/ASV Titration 01/12/2021 Insurance Providers Payer Name Payer Address Payer Phone Subscriber Number Group Number Insured Name Patient Relationship to Insured Coverage Start Date Coverage End Date [facility] [address] [facility] [place] [address] [id number] Ashley Fontanez Self - patient is the insured Medical (General) History Medical History History ICD Code Polycystic ovarian syndrome E28.2 GERD without esophagitis K21.9 Fibromyalgia M79.7 Encounter for preprocedural respiratory examination Z01.811 Asthma J45.909 LILI (obstructive sleep apnea) G47.33 Surgical History Surgery Date(Month/Year) Tubal Ligation
--- OUTSIDE RECORDS SUMMARY | 2024-12-09 13:14 | XMS_ITS | Encounter Summary ---
Author Organization [facility] Address [address] [place] [address] Care Team Providers Care Cloth Booker Name Role Phone Unavailable Primary Care Provider Unavailabl e Encounter Details Date Type Department Care Team (Latest Contact Info) Description 12/01/2024 Travel Social History Tobacco Use Types Packs/Day Years [...] PM EST Office Visit LOLA SANTACRUZ [address] [facility] [place] [address] Gregory Dutton DO [address] [facility] [place] [address] documented as of this encounter Visit Diagnoses Not on filedocumented in this encounter
--- OUTSIDE RECORDS SUMMARY | 2024-12-09 13:14 | XMS_ITS | Encounter Summary ---
Author Organization [employer] Address [id number] [address] [place] [address] Care Team Providers Care Insurance Loss Adjuster Name Role Phone Dyana Velazquez PAD MACHINE OPERATOR-HEEL BOOM OPERATOR Primary Care Provide r Encounter Details Date Type Department Care Team (Late st Contact Info) Description 10/06/2020 Orders Only [facility] [address] [place] [address] Ref Prov, [place] [address] Social History Tobacco Use Types Packs/Day Years [...] Procedure Name Priority Date/Time Associated Diagnosis Comments SURGICAL PATHOLOGY Routine 10/06/2020 documented in this encounter Results * Surgical Pathology (10/06/2020) us Not In System Ref Prov PATHOLOGY/CYTOLOGY ORDERA BLES Final Result MANUALLY TRANSCRIBED RESULTS documented in this encounter Visit Diagnoses Not on filedocumented in this encounter Additional Health Concerns Assessment Noted Time PHQ-9 Depression Total Score: 0 09/28/19 21 2:00 PM EDT documented as of this encounter Care Teams Insurance Loss Adjuster Relationship Specialty Start Date End Date Dyana Velazquez APRN-HEEL BOOM OPERATOR [address] [place] [address] PCP - General Family Medicine 06/25/23 documented as of this encounter
--- OUTSIDE RECORDS SUMMARY | 2024-12-09 13:14 | XMS_ITS | Encounter Summary ---
Author Organization [facility] Address [address] [place] [address] Care Team Providers Care Rivet Machine Operator Name Role Phone Unavailable Primary Care Provider Unavailabl e Encounter Details Date Type Department Care Team (Late Contact Info) Description 11/17/2024 External Result Encounter NOMAriella SANTACRUZ [address] [place] [phone] Gregory Dutton, [address], [facility]11 Social History Tobacco Use Types Packs/Day [...] Office Visit LOLA SANTACRUZ [address] [place] [phone] Gregory Dutton DO [address], [place] [phone] documented as of this encounter Procedures Procedure Name Priority Date/Time Associated Diagnosis Comments US PELVIS TRANSVAGINAL 11/17/2024 10:20 AM EDT documented in this encounter Results * US pelvis transvaginal (11/17/2024 10:20 AM EDT) Anatomical Region Laterality Modality Pelvis Ultrasound 11/17/2024 10:2 0 AM EDT Narrative 11/17/2024 10:19 AM EDT THIS EXAM WAS PERFORMED AT [facility] WITH TRANSVAGINAL HISTORY: Abnormal menstrual cycle. Abnormal [...] Rashawn Way MD on 11/17/2024 9:55 AM ISal MD have personally reviewed the image(s) and agree with and/or edited the report Finalized by Sal Navarro MD on 11/17/2024 10:19 AM Procedure Note Radiology, Radiologist, - 11/17/2024 THIS EXAM WAS PERFORMED AT [facility] WITH TRANSVAGINAL HISTORY: Abnormal menstrual cycle. Abnormal [...] toprior comparison imaging. Approved by Resident Rashawn Way MD on 11/17/2024 9:55 AM I, Sal Navarro MD have personally reviewed the image(s) and agree withand/or edited the report Finalized by Sal Navarro MD on 11/17/2024 10:19 AM us Gregory Dutton DO IMG US PROCEDURES Final Result documented in this encounter Visit Diagnoses Not on filedocumented in this encounter
--- OUTSIDE RECORDS SUMMARY | 2024-12-09 13:14 | XMS_ITS | Encounter Summary ---
Author Organization [facility] Address [id number] [address] [place] [address] Care Team Providers Care Radar Operator Name Role Phone Dyana Velazquez PATIENT ACCOUNT SPECIALIST-LOADER OPERATOR/GROUND LEADER Primary Care Provide r Encounter Details Date Type Department Care Team (Late st Contact Info) Description 08/12/2020 Orders Only [facility] [address] [place] [phone] External, Scanning Provider Social History Tobacco Use Types Packs/Day Years Used Date Smoking Tobacco: Former Cigarettes Q uit: 2011 Smokeless Tobacco: Never Alcohol Use Standard Drinks/Week Comments No 0 (1 standard drink = 0.6 oz pur e alcohol) PHQ-2 Answer Date Recorded Total Score 0 03/11/2020 Childcare Answer Date Recorded Childcare Unknown 10/01/2018 [...] Orientation Straight 06/26/2022 9: 43 PM EST documented as of this encounter Plan of Treatment Not on file documented as of this encounter Procedures Procedure Name Priority Date/Time Associated Diagnosis Comments MULTIPLE LABS Routine 07/15/2020 XR CHEST 2 VWS Routine 07/15/2020 LIPID PROFILE Routine 07/15/2020 ECG 12-LEAD Routine 07/15/2020 documented in this encounter Results * Lipid profile (07/15/2020) External Cholesterol 158 MANUALLY TRANSCRIBED RESULTS External Cholesterol:Hdl 3.5 MANUALLY TRANSCRIBED RESULTS External Hdl Cholesterol 45 MANUALLY TRANSCRIBED RESULTS External Ldl (Calc) 81 MANUALLY TRANSCRIBED RESULTS External Triglycerides 158 MANUALLY TRANSCRIBED RESULTS External Very Low Lipoprotein 32 MANUALLY TRANSCRIBED RESULTS us Scanning Provider External LAB BLOOD ORDERABLES Edited Result - Final Performing Organization Address [facility] de Phone Number MANUALLY TRANSCRIBED RESULTS * Multiple labs (07/15/2020) us Scanning Provider External [place] [facility] Final Result Performing Organization Address [facility] de Phone Number MANUALLY TRANSCRIBED RESULTS * X-ray chest 2 views (07/15/2020) Anatomical Region Laterality Modality Body, Chest N/A Computed Radiogr aphy us Scanning Provider External IMG DIAGNOSTIC IMAGIN G ORDERABLES Final Result * ECG 12 lead (07/15/2020) us Scanning Provider External ECG ORDERABLES Final Result Performing Organization Address [facility] de Phone Number MANUALLY TRANSCRIBED RESULTS documented in this encounter Visit Diagnoses Not on filedocumented in this encounter Additional Health Concerns Assessment Noted Time PHQ-9 Depression Total Score: 0 03/11/20 20 9:00 AM EST documented as of this encounter Care Teams Radar Operator Relationship Specialty Start Date End Date Dyana Velazquez APRN-DARA [address] [place] [address] PCP - General Family Medicine 06/25/23 documented as of this encounter
--- OUTSIDE RECORDS SUMMARY | 2024-12-09 13:15 | XMS_ITS | Encounter Summary ---
Author Organization [facility] Address [id number] [address] [place] [address] Care Team Providers Care Heavy Cleaner Name Role Phone Dyana Velazquez SMALL WIND ENERGY INSTALLER-AIRCRAFT ENGINE TECHNICIAN Primary Care Provide r Encounter Details Date Type Department Care Team (Late st Contact Info) Description 04/26/2020 Telephone [facility] [address] [facility] [facility] [address] [place] [address] Tiara Bergeron APRN-AIRCRAFT ENGINE TECHNICIAN [address] [facility] [address] [place] [address] Social History Tobacco Use Types Packs/Day Years Used Date Smoking Tobacco: Former Cigarettes Q uit: 2012 Smokeless Tobacco: Never Alcohol Use Standard Drinks/Week Comments No 0 (1 standard drink = 0.6 oz pur e alcohol) PHQ-2 Answer Date Recorded Total Score 0 03/11/2020 Childcare Answer Date Recorded Childcare Unknown 10/01/2018 Employment Answer Date Recorded Employment Unknown 10/01/2018 Comments No Sex and Gender Information Value Date Recorded Sex Assigned at Female 06/26/2022 9:43 PM EST Legal Sex Female 11:39 AM EDT Gender Identity Female 06/26/2022 9:43 PM EST Sexual Orientation Straight 06/26/2022 9: 43 PM EST COVID-19 Exposure Response Date Recorded In the last month, have you been in contact with someone who was confirmed or suspected to have Coronavirus / COVID-19? No / Unsure 04/19/2020 4:18 PM EST documented as of this encounter Miscellaneous Notes * Telephone Encounter - Ilene Wei - 04/26/2020 10:06 AM EST [employer] [facility] called on 04/25/2020. Ashley's MRI Brain was denied by insurance and needs a [id number] within 5 business days. Please call [phone] Option 3, reference number [id number]. * Telephone Encounter - DALE Varner - 04/26/2020 10:06 AM EST They stated that it no longer can be a [id number], only an appeal. I initiated the process. Please fax her office note to * Telephone Encounter - Ilene Wei - 04/26/2020 10:06 AM EST Faxed office notes to Robert. documented in this encounter Plan of Treatment Not on file documented as of this encounter Visit Diagnoses Not on filedocumented in this encounter Additional Health Concerns Assessment Noted Time PHQ-9 Depression Total Score: 0 03/11/20 20 9:00 AM EST documented as of this encounter Care Teams Heavy Cleaner Relationship Specialty Start Date End Date Dyana Velazquez APRN-CNP [address] [place] [address] PCP - General Family Medicine 06/25/23 documented as of this encounter
--- OUTSIDE RECORDS SUMMARY | 2024-12-09 13:15 | XMS_ITS | Clinical Summary ---
Author Organization [facility] Healthcare Address [address] [place] [address] Care Team Providers Care Loft Worker Name Role Phone Unavailable Primary Care Provider Unavailabl e Allergies Active Allergy Reactions Criticality Noted Date Comments Clarithromycin Swelling High 02/19/2017 Other Reaction(s): Throat swelling Tongue swelling Medications Protonix 40 MG EC tablet 05/16/2022 Active Multiple Vitamins-Minera ls (Daily Vitamin Formula+Mineral s) tablet 03/16/2022 Active cetirizine (ZyrTEC) 10 MG tablet Take 10 mg by mouth in the morning. 10/30/2024 Active meclizine (Antivert) 25 MG tablet Take 25 mg by mouth 3 (three) times a day as needed 02/12/2024 Active midodrine (Proamatine) 5 MG tablet Take 5 mg by mouth in the morning and 5 mg at noon and 5 mg in the evening. 04/27/2024 Active Encounters Date Type Department Care Team Description 12/07/2024 11:30 AM EDT Procedure [facility] [address] Gregory Dutton DO Enlarged uterus; Abnormal menstruation 12/01/2024 Travel 11/18/2024 Abstract [facility]CR[facility] [address] [place] [phone] Gregory Dutton DO 11/17/2024 Abstract [facility] [address] [facility] [address] Tg Nicole, AUTUMN 11/17/2024 External Result Encounter [facility] [address] [place] [address] Gregory Dutton, 11/13/2024 Telephone [facility] [address] [address] Tg Nicole LPN 11/02/2024 10:10 AM EDT Office Visit [facility] S[facility]ACRU[facility] [address] [place] [address] Gregory Dutton DO Abnormal menstrual cycle 11/02/2024 Bamboo flowsheet [facility]ACRU[facility] [address] [place] [address] Gregory Dutton, 11/02/2024 Travel from Last 3 Months Family History Medical History Relation Name Comments heart issues Maternal Grandfather Diabetes Mother Relation Name Status Comments Maternal Grandfather Mother Social History Tobacco Use Types Packs/Day Years Used Date Smoking Tobacco: Never Assessed Comments No Sex and Gender Information Value Date Recorded Sex Assigned at Not on file Legal Sex Female 9:05 AM EDT Gender Identity Not on file Sexual Orientation Not on file Last Filed Vital Signs Vital Sign Reading Time Taken Comments Blood Pressure 110/72 12/07/2024 11:36 AM EDT Pulse - - Temperature - - Respiratory Rate - - Oxygen Saturation - - Inhaled Oxygen Concentration - - Weight 60.1 kg (132 lb 8 oz) 12/07/2024 11:36 AM EDT Height - - Body Mass Index - - Plan of Treatment Upcoming Encounters Date Type Department Care Team (Late st Contact Info) Description 04/07/2025 1:00 PM EST Office Visit [facility] [address] [place] [address] Gregory Dutton, DO [address] [place] [address] [address] [place] [place], [place] [id number] Procedures Procedure Name Priority Date/Time Associated Diagnosis Comments ENDOMETRIAL BIOPSY Routine 12/07/2024 12 :00 PM EDT Enlarged uterus Abnormal menstruation POCT , URINE Routine 12/07/2024 11:40 AM EDT Enlarged uterus Abnormal menstruation US PELVIS TRANSVAGINAL 11/17/2024 10:20 AM EDT TSH ([facility]) Routine 11/06/2024 9:33 AM EDT HEMOGLOBIN A1C Routine 11/06/2024 9:33 AM EDT from Last 3 Months Results * Endometrial biopsy (12/07/2024 12:00 PM [...] collected: specimen collected and sent to pathology us Gregory Dutton DO IN CLINIC/BEDSIDE ORDERABLES Fin al Result * POCT , urine manually resulted (12/07/2024 11:40 AM EDT) Preg Test, Ur Negative Negative Urine 12/07/2024 11:4 0 AM EDT us Gregory Dutton DO POINT OF CARE TEST ENTER/EDIT OR DERABLES Final Result * US pelvis transvaginal (11/17/2024 10:20 AM EDT) Anatomical Region Laterality Modality Pelvis Ultrasound 11/17/2024 10:2 0 AM EDT Narrative 11/17/2024 10:19 AM EDT THIS EXAM WAS PERFORMED AT [facility] WITH TRANSVAGINAL HISTORY: Abnormal menstrual cycle. [...] - 11/17/2024 THIS EXAM WAS PERFORMED AT [facility] WITH TRANSVAGINAL HISTORY: Abnormal menstrual cycle. Abnormal [...] Navarro MD on 11/17/2024 10:19 AM [facility] US PROCEDURES Final Result * TSH ([facility]) (11/06/2024 9:33 AM EDT) TSH 2.46 0.49 - 4.67 uIU/mL [facility] Comment: PERFORMED AT [facility] [address],[place] [address] 11/06/2024 9:33 AM EDT 11/06/2024 1:02 PM EDT us Gregory Marija DO LAB BLOOD ORDERABLES Final Resul t [facility] * Hemoglobin A1c (11/06/2024 9:33 AM EDT) HEMOGLOBIN A1C 5.3 4.4 - 5.6 % [facility] Comment: ADA Guidelines Result HgbA1c Normal : less than 5.7 % Prediabetes : 5.7 % to 6.4 % Diabetes : > 6.4 % Use with caution in patients with abnormal hemoglobin variants as the half-life of red blood cells and in vivo glycation rates are affected. AVERAGE GLUCOSE 105 mg/dL [facility] Comment: PERFORMED AT [facility] [address],[place] [address] 11/06/2024 9:33 AM EDT 11/06/2024 1:02 PM EDT MAKO Surgicalo DO LAB BLOOD ORDERABLES Final Resul t [facility] from Last 3 Months Insurance [employer] [facility]
--- OUTSIDE RECORDS SUMMARY | 2024-12-09 13:15 | XMS_ITS | Encounter Summary ---
Author Organization [facility] Address [id number] [address] [place] [address] Care Team Providers Care Grand Scribe Name Role Phone Dyana Velazquez PROCESSING SPECIALIST-NEUROSCIENTIST Primary Care Provide r Encounter Details Date Type Department Care Team ([facility] st Contact Info) Description 05/09/2020 Telephone [facility] Pul[facility] [address] [facility] [address] [place] [address] Manju Hurtado MD [address] [place] [address] Social History Tobacco Use Types Packs/Day Years [...] encounter Miscellaneous Notes * Telephone Encounter - Manju Hurtado MD - 05/09/2020 10:11 AM EST ----- Message from Stephanie Tee sent at 05/09/2020 8:52 AM EST ----- Regarding: Approval Need Direct Referral Hi Dr. Hurtado, Attached in the patients chart are the order and notes for your review. The patient is ordered to undergo a COMP Study. The encounter notes were entered into the Chart on 03-11-20. The PT was seen by Tiara Bergeron on 03-11-20. Thank you! Stephanie - [facility] [phone] Opt 1. * Telephone Encounter - Manju Hurtado MD - 05/09/2020 10:11 AM EST Please add TCO2 monitoring. Thanks. documented in this encounter Plan of Treatment Not on file documented as of this encounter Visit Diagnoses Not on filedocumented in this encounter Additional Health Concerns Assessment Noted Time PHQ-9 Depression Total Score: 0 03/11/20 20 9:00 AM EST documented as of this encounter Care Teams Grand Scribe Relationship Specialty Start Date End Date Dyana Velazquez APRN-DARA [address] [facility] [place] [address] PCP - General Family Medicine 06/25/23 documented as of this encounter
--- OUTSIDE RECORDS SUMMARY | 2024-12-09 13:15 | XMS_ITS | Encounter Summary ---
Author Organization [facility] Address [id number] [address] [place] [address] Care Team Providers Care Roustabout Crew Pusher Name Role Phone Dyana Velazquez BELT CONVEYOR DRIER-TRAUMA DOCTOR Primary Care Provide r Encounter Details Date Type Department Care Team (Late st Contact Info) Description 02/05/2024 Telephone [facility] Family Medicine [address] [place] [address] Harika Nunez LPN Social History Tobacco Use Types Packs/Day Years Used Date Smoking Tobacco: Former Cigarettes Smokeless Tobacco: Never Alcohol Use Standard Drinks/Week Comments Not Currently 0 (1 standard drink = 0.6 oz pur e alcohol) socially PHQ-2 Answer Date Recorded Total Score 0 11/15/2021 Childcare Answer Date Recorded Childcare Unknown 10/01/2018 Employment Answer Date Recorded Employment Unknown 10/01/2018 Hunger Screening Answer Date Recorded Within the past 12 months we worried whether our food would run out before we got money to buy more. Never True 10/23/2023 Within the past 12 months th e food we bought just didn't last and we didn't have money to get more. Never True 10/23/2023 Purpose - Life Answer Date Recorded Purpose [...] on file documented as of this encounter Miscellaneous Notes * Telephone Encounter - Harika Nunez LPN - 02/05/2024 10:45 AM EDT Telecom from [facility] Flore[facility] stating they will have to reschedule her echo, waiting for holter monitor results * Telephone Encounter - DALE Crow - 02/05/2024 10:45 AM EDT Okay, it has not been read yet documented in this encounter Plan of Treatment Not on file documented as of this encounter Visit Diagnoses Not on filedocumented in this encounter Additional Health Concerns Assessment Noted Time PHQ-9 Depression Total Score: 0 11/16/19 10:50 AM EDT A Body Mass Index follow-up plan has been documented for the patient 02/11/2023 3:32 PM EDT documented as of this encounter Care Teams Roustabout Crew Pusher Relationship Specialty Start Date End Date Dyana Velazquez APRN-CNP [address] [place] [address] PCP - General Family Medicine 06/25/23 documented as of this encounter
--- OUTSIDE RECORDS SUMMARY | 2024-12-09 13:15 | XMS_ITS | Encounter Summary ---
Author Organization [facility] Address [id number] [address] [place] [address] Care Team Providers Care Supervisor Blueprinting And Photocopy Name Role Phone Dyana Velazquez MOTION PICTURE COMMENTATOR-CABLE TOOL DRILLER Primary Care Provide r Encounter Details Date Type Department Care Team (Late st Contact Info) Description 10/27/2024 [facility] [address] [place] [address] Fabiola Hernandez, ANTHONY Echo complete W/O contrast Social History Tobacco Use Types Packs/Day Years [...] Time PHQ-9 Depression Total Score: 0 11/16/19 22 10:50 AM EDT A Body Mass Index follow-up plan has been documented for the patient 02/11/2023 3:32 PM EDT documented as of this encounter Care Teams Supervisor Blueprinting And Photocopy Relationship Specialty Start Date End Date Dyana Velazquez APRN-DARA [address] [place] [address] PCP - General Family Medicine 06/25/23 documented as of this encounter
--- OUTSIDE RECORDS SUMMARY | 2024-12-09 13:15 | XMS_ITS | Encounter Summary ---
Author Organization [facility] Address [facility][id number] [address] [place] [address] Care Team Providers Care School Superintendent Name Role Phone Dyana Velazquez APRN-DARA Primary Care Provide r Encounter Details Date Type Department Care Team (Late st Contact Info) Description 11/09/2024 Results Follow-Up [facility] Family Medicine [address] [place] [address] Dyana Velazquez APRN-CNP [address] [place], [place] [id number] Lipid profile Social History Tobacco Use Types Packs/Day Years [...] Noted Time PHQ-9 Depression Total Score: 0 10/31/19 25 10:19 AM EDT A Body Mass Index follow-up plan has been documented for the patient 02/11/2023 3:32 PM EDT documented as of this encounter Care Teams School Superintendent Relationship Specialty Start Date End Date Dyana Velazquez APRN-DARA [address] [place] [address] PCP - General Family Medicine 06/25/23 documented as of this encounter
== END 2024-12-07 13:13 | disposition home or self-care (01) ==
LOC: LAB 13:12
PROVIDERS: Visit Provider Obstetrics & Gynecology
DX: N92.6 Irregular menstruation, unspecified (principal)
CPT/HCPCS: 88305

== ENCOUNTER 2025-03-12 10:36 | Outpatient (OUT) | payer OTHER, SELFPAY ==
--- OUTSIDE RECORDS SUMMARY | 2025-03-01 10:40 | XMS_ITS | Encounter Summary ---
Author Organization [facility] Address [address] [place] [address] Care Team Providers Care Medical Receptionist Assistant Name Role Phone Unavailable Primary Care Provider Unavailabl e Reason for Visit * ReasonCommentsPre-op Visit Encounter Details DateTypeDepartmentCare Team (Latest Contact Info)Wdzrutoclee91/10/2025 10:40 AM ESTConsult [facility] [address] [place] [address] Gregory Dutton DO [address] [place] [address] Pre-op examination; Menorrhagia with regular cycle; Pelvic pain in female; Abdominal pain, unspecified abdominal location Social History Tobacco UseTypesPacks/DayYears UsedDateSmoking Tobacco: Every DaySmokeless Tobacco: Current Tobacco Cessation:Ready to Q uit: Not Asked; Counseling Given: Not Answered Alcohol UseStandard Drinks/WeekCommentsNot Currently0 (1 standard drink = 0.6 oz pure alcohol)CommentsNoSex and Gender InformationValueDate RecordedSex Assigned at BirthNot on fileLegal XacSxsqnz11/30/2023 9:05 AM EDTGender Identity Not on fileSexual OrientationNot on filedocumented as of this encounter Last Filed Vital Signs Vital SignReadingTime TakenCommentsBlood Qtrhmfxi752/6803/01/2025 10:25 AM EST Pulse--Temperature--Respiratory Rate--Oxygen Saturation--Inhaled Oxygen Concentration--Rdvhfq36.7 kg (133 lb 12.8 oz)03/01/2025 10:25 AM ESTHeight--Body Mass Index--documented in this encounter Progress Notes * Tiffani Bennett - 03/01/2025 10:40 AM EST Reason for Appointment: Patient ID: Ashley Pollock is a 39 y.o. female who presents for Pre-op Visit Patient presents today for Pre Op appointment. Patient is scheduled to undergo Diagnostic Laparoscopy, possible ALMA, possible FOE, possible BSO and D&C Hysteroscopy, possible Myosure on 03/26/2025with Dr. Dutton at [facility]. MEDICATIONS Current Outpatient Medications Medication Instructions cetirizine (ZYRTEC) 10 mg, Daily RT escitalopram (Lexapro) 5 MG tablet meclizine (ANTIVERT) 25 mg, 3 times daily PRN midodrine (PROAMATINE) 5 mg, 3 times daily Multiple Vitamins-Minerals (Daily Vitamin Formula+Minerals) tablet Protonix 40 MG EC tablet Vraylar 1.5 MG capsule ALLERGIES Allergies Allergen Reactions Clarithromycin Swelling Other Reaction(s): Throat swelling Tongue swelling PROBLEMS Active Ambulatory Problems Diagnosis Date Noted No Active Ambulatory Problems Resolved Ambulatory Problems Diagnosis Date Noted No Resolved Ambulatory Problems Past Medical History: Diagnosis Date Asthma (HCC) Bleeding ulcer Clotting disorder (HHS-HCC) 2020 Polycystic ovary syndrome HISTORY PAST MEDICAL HISTORY SOCIAL HISTORY Past Medical History: Diagnosis Date Asthma (HCC) Bleeding ulcer Clotting disorder (HHS-HCC) 2020 Polycystic ovary syndrome Social History Tobacco Use Smoking status: Every Day Smokeless tobacco: Current Substance Use Topics Alcohol use: Not Currently Drug use: Never FAMILY HISTORY Family History Problem Relation Name Age of Onset Diabetes Mother Christina Migraines Mother Christina Other (heart issues) Maternal Grandfather SURGICAL HISTORY Past Surgical History: Procedure Laterality Date CHOLECYSTECTOMY GASTRIC BYPASS 2020 or 2021 MR ANGIOGRAM PELVIS W AND WO IV CONTRAST 11/16/2022 MR ANGIOGRAM PELVIS W AND WO IV CONTRAST 11/16/2022 TUBAL LIGATION REVIEW OF SYSTEMS Review of Systems: Review of Systems Constitutional: Negative. HENT: Negative. Eyes: Negative. Respiratory: Negative. Cardiovascular: Negative. Gastrointestinal: Negative. Genitourinary: Positive for menstrual problem and pelvic pain. Musculoskeletal: Negative. Skin: Negative. Neurological: Negative. All other systems reviewed and are negative. Hematological: Negative. Endocrine: Negative. Allergic/Immunologic: Negative. OBJECTIVE Objective: Physical Exam Constitutional: Appearance: Normal appearance. She is well-developed. Cardiovascular: Rate and Rhythm: Normal rate and [...] nursing note reviewed. Exam conducted with a side stitching machine operator present. Vitals: There is no height or weight on file to calculate BMI. BP: Patient's last menstrual period was 01/22/2025 (approximate). ASSESSMENT & PLAN ICD-10-CM 1. Pre-op examination Z01.818 2. Menorrhagia with regular cycle N92.0 3. Pelvic pain in female R10.20 4. Abdominal pain, unspecified abdominal location R10.9 Pre Op: Patient is doing well but has complaints of extreme menorrhagia and pelvic pain. I have discussed conservative management vs. surgical management with the patient in detail and patient desires surgical management at this time. Patient will undergo Diagnostic Laparoscopy, possible ALMA, possible FOE,possible BSO and D&C Hysteroscopy, possible Myosure on 03/26/2025. Surgical consents were signed, mmc was reviewed, and patient is to proceed to [facility] OR. Follow Up: Patient is to follow up between 1-2 weeks post operative to assess proper healing and recovery fromprocedure. Documented by Tg Nicole LPN on behalf of: Gregory Dutton DO documented in this encounter Plan of Treatment DateTypeDepartmentCare Team (Latest Contact Info)Khdlxidxcwi23/17/2025 1:00 PM ESTOffice Visit [facility] [address] [place] [address] Gregory Dutton DO [address] [place] [address] documented as of this encounter Visit Diagnoses Diagnosis Pre-op examination Menorrhagia with regular cycle Pelvic pain in female Unspecified symptom associated with female genital organs Abdominal pain, unspecified abdominal location documented in this encounter
--- OUTSIDE RECORDS SUMMARY | 2025-03-12 10:39 | XMS_ITS | Patient Health Record ---
Author Organization [facility] Address [address] [place] [address] [address] [place] [address] Care Team Providers Care Customer Quality Specialist Name Role Phone LYRIC HENRY Unavailable [phone] Gurpreet Maza Unavailable Unavailable Allergies Allergen (clinical drug ingredient) Drug/Non Drug Allergy documented on EMR Reaction Allergy Type Onset Date Status BiaxinUnknownDrug AllergyActive Reason For Referral No Information Medications Medication SIG (Take, Route, Frequency, Duration) Notes Start Date End Date Status Flovent Diskus 50 MCG/BLIST 1 puff Inhalation Tw ice a day ActiveAlbuterol Sulfate HFA 108 (90 Base) MCG/ACT2 puffs as needed Inhalation every 6 hrsActive Social History Tobacco Use: Social History Observation Description Date Details (start date - stop date) Never Smoker NA - NA Tobacco Use/Smoking Question Answer Notes Are you a nonsmoker Problems Problem Type SNOMED Code ICD Code Onset Dates Problem Status W/U Status Risk Notes Problem Polycystic ovary syn drome (disorder) (472040518) Polycystic ovarian syndrome (E28.2) ActiveconfirmedProblemFibromyalgia (273304815)Fibromyalgia (M79.7)Active confirmedProblemIdentification of preoperative respiratory status (243253853) Encounter for preprocedural respiratory examination (Z01.811)Activeconfirmed ProblemObstructive sleep apnea syndrome (88630430)LILI (obstructive sleep apnea) (G47.33)ActiveconfirmedProblemAsthma (252389431)Asthma (J45.909)Activeconfirmed ProblemGastroesophageal reflux disease (314849757)GERD without esophagitis (K21.9)Activeconfirmed Plan Of Treatment Pending Test Test Name Order Date CPAP/BIPAP/ASV Titration 01/12/2021 Insurance Providers Payer Name Payer Address Payer Phone Subscriber Number Group Number Insured Name Patient Relationship to Insured Coverage Start Date Coverage End Date [facility] [address] [place] [address] [id number], TiffanySelf - patient is the insured Medical (General) History Medical History History ICD Code Polycystic ovarian syndrome E28.2 GERD without esophagitis K21.9 Fibromyalgia M79.7 Encounter for preprocedural respiratory examination Z01.811 Asthma J45.909 LILI (obstructive sleep apnea) G47.33 Surgical History Surgery Date(Month/Year) Tubal Ligation
--- OUTSIDE RECORDS SUMMARY | 2025-03-12 10:39 | XMS_ITS | Clinical Summary ---
Author Organization [facility] Address [address] [place] [address] Care Team Providers Care Leather Colorer Name Role Phone Unavailable Primary Care Provider Unavailabl e Allergies Active AllergyReactionsCriticalityNoted DateCommentsClarithromycinSwellingHigh 02/19/2017 Other Reaction(s): Throat swelling Tongue swelling Medications MedicationSigDispense QuantityRefillsLast FilledStart DateEnd DateStatus Protonix 40 MG EC tablet 3Active Multiple Vitamins-Minerals (Daily Vitamin Formula+Minerals) tablet 2Active cetirizine (ZyrTEC) 10 MG tablet Take 10 mg by mouth in the morning.5Active meclizine (Antivert) 25 MG tablet Take 25 mg by mouth 3 (three) times a day as rdpavv444Active midodrine (Proamatine) 5 MG tablet Take 5 mg by mouth in the morning and 5 mg at noon and 5 mg in the evening. 5Active Vraylar 1.5 MG capsule 5Active escitalopram (Lexapro) 5 MG tablet 5Active Encounters DateTypeDepartmentCare JvclKktudojeicy53/10/2025 10:40 AM ESTConsult LOLA SANTACRUZ [address] [place] [address] Gregory Dutton DO Pre-op examination; Menorrhagia with regular cycle; Pelvic pain in female; Abdominal pain, unspecified abdominal ltmspyzq70/10/2025amboo flowsheet LOLA SANTACRUZ [address] [place] [address] Gregory Dutton DO 02/01/2025 8:30 AM EDTOffice Visit NOMAriella SANTACRUZ [address] [place] [address] Karena Alvares PA Menorrhagia with regular cycle02/01/2025amboo flowsheet NOMAriella SANTACRUZ [address] [place] [address] Karena Alvares PA 01/25/2025Travelfrom Last 3 Months Family History Medical HistoryRelationNameCommentsheart issuesMaternal GrandfatherDiabetes MotherRuthMigrainesMotherRuthRelationNameStatusCommentsMaternal Grandfather MotherRuthAlive Social History Tobacco UseTypesPacks/DayYears UsedDateSmoking Tobacco: Every DaySmokeless Tobacco: Current Tobacco Cessation:Ready to Q uit: Not Asked; Counseling Given: Not Answered Alcohol UseStandard Drinks/WeekCommentsNot Currently0 (1 standard drink = 0.6 oz pure alcohol)CommentsNoSex and Gender InformationValueDate RecordedSex Assigned at BirthNot on fileLegal VbvPgbyyh31/30/2023 9:05 AM EDTGender Identity Not on fileSexual OrientationNot on file Last Filed Vital Signs Vital SignReadingTime TakenCommentsBlood Ojfewlvt748/6803/01/2025 10:25 AM EST Pulse--Temperature--Respiratory Rate--Oxygen Saturation--Inhaled Oxygen Concentration--Eiuxns47.7 kg (133 lb 12.8 oz)03/01/2025 10:25 AM ESTHeight--Body Mass Index-- Plan of Treatment DateTypeDepartmentCare Team (Latest Contact Info)Ctgjhixcpcw51/17/2025 1:00 PM ESTOffice Visit LOLA SANTACRUZ [address] [place] [address] Gregory Dutton, DO [address] [place] [place], [place] [id number] Insurance
--- OUTSIDE RECORDS SUMMARY | 2025-03-12 10:39 | XMS_ITS | Patient Health Record ---
Author Organization [facility] [place] Address [address] [place] [address] Support Name Relationship Address Phone Ashley De La Cruz Guarantor Unknown Reason For Referral No Information Immunizations Vaccine Route Administration Date Status Comme nts DTaP Unknown 04/02/1988 Pending 04/02/88 DTaP Unknown 10/22/1988 Pending 10/22/88 DTaP Unknown 06/24/1989 Pending 06/24/89 DTaP Unknown 12/01/1990 Pending 12/01/90 DTaP Unknown 11/28/1992 Pending 11/28/92 DTaP (Daptacel) Unknown 07/28/1998 Pending 07/28/98 Hep B, Adult, 3 Dose Unknown 01/26/1998 Pending Hep B, Adult, 3 Dose Unknown 04/02/1998 Pending 03/22 Hep B, Adult, 3 Dose Unknown 07/28/1998 Pending Hep B, Adult, 3 Dose Unknown 08/10/2002 Pending 07/22 04/24 HIB, 4 dose schedule Unknown 08/26/1989 Pending MMR Unknown 06/24/1989 Pending 06/24/89 MMR Unknown 01/26/1998 Pending 01/26/98 Pneumococcal (Pneumovax 23) Unknown 06/12/2004 Pending 06/12/04 Polio Virus, IPV Unknown 04/02/1988 Pending 04/02/88 Polio Virus, IPV Unknown 10/22/1988 Pending 10/22/88 Polio Virus, IPV Unknown 10/28/1989 Pending 10/28/89 Polio Virus, IPV Unknown 11/28/1992 Pending 11/28/92 Plan Of Treatment No Information
--- OUTSIDE RECORDS SUMMARY | 2025-03-12 10:39 | XMS_ITS | Clinical Summary ---
Author Organization [facility] Address [id number] [address] [place] [address] Care Team Providers Care Postmaster Relief Name Role Phone Dyana Velazquez APRN-CORONER TRANSPORT TECHNICIAN Primary Care Provide r Allergies Active AllergyReactionsCriticalityNoted DateCommentsClarithromycinSwellingHigh 02/19/2017 Tongue swelling Medications MedicationSigDispense QuantityRefillsLast FilledStart DateEnd DateStatus albuterol (PROVENTIL HFA;VENTOLIN HFA) 90 mcg/actuation inhaler Inhale 2 puffs every 6 (six) hours as needed.Active pantoprazole (PROTONIX) 40 mg EC tablet 2Active meclizine (ANTIVERT) 25 mg tablet Take 1 tablet (25 mg total) by mouth 3 (three) times a day as needed for dizziness. 30 tablet 4Active midodrine (PROAMATINE) 5 mg tablet Take 1 tablet (5 mg total) by mouth 3 (three) times a day. 270 tablet 5Active cetirizine (ZyrTEC) 10 mg tablet Take 1 tablet (10 mg total) by mouth in the morning. 30 tablet 5Active Active Problems ProblemNoted DateDiagnosed DatePostcoital yjhpeupl42/22/2023hronic SI joint pain10/11/2022ony ufxfrxvxd06/22/2023Pelvic utdcbarqky88/22/2023History of Wero-en-Y gastric atctyr3304/17/2022 Overview (04/17/2022): 03/06/21 Dr. Maza in [place] Platelet function izxtso1210/07/2020Migraine without aura and without status migrainosus, not ufwkbfoundp33/20/2020Primary fcyfkqqw37/20/2020Disruptions of 24 hour sleep-wake cycle03/11/2020Carpal tunnel syndrome on both sides03/11/2020 Hx of tubal eoglwxju66/31/2017 Overview (02/19/2017): 2016 PCOS (polycystic ovarian syndrome)02/19/2017 Overview (02/19/2017): Per patient report FibromyalgiaAsthma Resolved Problems ProblemNoted DateDiagnosed DateResolved DateVisual bwkvuhewfwu09/20/2020 12/31/2022 Family History Medical HistoryRelationNameCommentsBleeding DisorderBrotherAsthmaDaughter Bleeding DisorderDaughterCrohn's diseaseMaternal AuntHeart diseaseMaternal GrandfatherDiabetesMotherHypertensionMotherMigrainesSisterAsthmaSonBleeding DisorderSonOtherSonhorseshoe kidneyBreast cancerNeg HxColon cancerNeg HxOvarian cancerNeg HxUterine cancerNeg HxRelationNameStatusCommentsBrotherAliveDaughter OtherMaternal AuntMaternal GrandfatherMotherSisterAliveSonAlive Social History Tobacco UseTypesPacks/DayYears UsedDateSmoking Tobacco: FormerCigarettes Smokeless Tobacco: Never Tobacco Cessation:Counseling Given: Not Answered Alcohol UseStandard Drinks/WeekCommentsNot Currently0 (1 standard drink = 0.6 oz pure alcohol)sociallyOverall Financial Resource Strain (CARDIA)AnswerDate RecordedHow hard is it for you to pay for the very basics like food, housing, medical care, and heating?Not hard at all10/28/2024PHQ-2AnswerDate RecordedTotal Ngzhn908PRAPARE - TransportationAnswerDate RecordedIn the past 12 months, has lack of transportation kept you from medical appointments or from getting medications?No10/28/2024In the past 12 months, has lack of transportation kept you from meetings, work, or from getting things needed for daily living?No10/28/2024Housing InstabilityAnswerDate RecordedAre you worried or concerned that in the next two months you may not have stable housing that you own, rent or stay in as a part of a household?No5ChildcareAnswer Date IdvbeihhRrkvqxescJexxzsv67/12/2019EmploymentAnswerDate RecordedEmployment Ioiarnz7310/01/2018Hunger ScreeningAnswerDate RecordedWithin the past 12 months we worried whether our food would run out before we got money to buy more.Never True10/30/2024Within the past 12 months the food we bought just didn't last and we didn't have money to get more.Never True10/30/2024Purpose - LifeAnswerDate RecordedPurpose and direction in whltIxlwfuo83/18/2021CommentsNoSex and Gender InformationValueDate RecordedSex Assigned at NrsaeQmmphk58/07/2023 9:43 PM ESTLegal UljWzuyxj96/06/2015 11:39 AM EDTGender PlwcqwyiLfowvm88/07/2023 9:43 PM ESTSexual AwfklnmrmbrOuzfghvl88/07/2023 9:43 PM ESTOccupationIndustryJob Start DateJob End DateunemployedNot on fileNot on fileNot on file Last Filed Vital Signs Vital SignReadingTime TakenCommentsBlood Uizeakpe983/6607 10:18 AM EDT Aksvw590710/30/2024 10:18 AM XMBJsknumrdqeu14.8 ??C (98.2 ??F)02/14/2023 8:25 AM EDTRespiratory Ngeb842010/30/2024 10:18 AM EDTOxygen Gpztbhimsp62%10/30/2024 10:18 AM EDTInhaled Oxygen Concentration--Iaebqn61.4 kg (131 lb)10/30/2024 10:18 AM CUANlkszv932.5 cm (5' 2 )10/30/2024 10:18 AM EDTBody Mass Index23.9610/30/2024 10:18 AM EDT Plan of Treatment Health MaintenanceDue DateLast DoneCommentsInfluenza Qwmrqoj9212/21/2024 02/06/2022, 02/01/2022, 02/22/2021, Additional history existsDTaP,Tdap and Td Vaccines (7 - Td or Tdap), 07/28/1998, 11/28/1992, Additional history existsAdult BMI Vvzvyshvy35Depression Ucmmcdxuj34Tobacco Xeebuhfzm43Pap Smear , 02/11/2023, 02/11/2023, Additional history exists Medical Devices Not on file Procedures Procedure NamePriorityDate/TimeAssociated DiagnosisCommentsHIGH RISK HPV W/JULIA Wzmnsds8402/11/2023 4:46 AM EDT Pap smear, as part of routine gynecological examination from Last 3 Months or Most Recently Relevant to Health Maintenance Results * High risk HPV w/julia (02/11/2023 4:46 AM EDT)ComponentValueRef RangeTest MethodAnalysis TimePerformed AtPathologist SignatureHpv specimen typeThinPrep 02/12/2023 4:47 AM EDBELLFLOWER [facility] CENTERHpv 16NegativeNegative^Negative 02/13/2023 6:03 AM [facility] LABHpv 18Negative Negative^Rdvocvmo05/25/2023 6:03 AM [facility] LABOther high risk hpvNegativeNegative^Ebdnllyn54/25/2023 6:03 AM [facility] LABComment: HPV types 31,33,35,39,45,52,56,58,59,66 and 68 DNA were undetectable. Specimen (Source)Anatomical Location / LateralityCollection Method / Volume Collection TimeReceived LycyYLQQP88/23/2023 4:46 AM EDT1 4:47 AM EDT Narrative Authorizing ProviderResult TypeResult StatusCoristerling HURLEY BLOOD ORDERABLESFinal ResultPerforming OrganizationAddressCity/State/ZIP CodePhone Number [facility] [address] [facility], [place] [address] [facility] [address] [facility] [facility] [place] [address] from Last 3 Months or Most Recently Relevant to Health Maintenance Insurance Care Teams Team MemberRelationshipSpecialtyStart DateEnd Date Dyana Velazquez APRN-DARA [address] [place] [address] PCP - GeneralFamily Medicine06/25/23
--- OUTSIDE RECORDS SUMMARY | 2025-03-12 10:39 | XMS_ITS | Clinical Summary ---
Author Organization [facility] Address [address] [place] [address] Care Team Providers Care Pharmacy Intake Technician Name Role Phone Gregory Dutton DO Unavailable [phone] Social History Tobacco UseTypesPacks/DayYears UsedDateSmoking Tobacco: Never AssessedArea Deprivation IndexAnswerDate RecordedNational Score (1-100), lower number is lower lohz236508/27/2022State Score (1-10), lower number is lower kifk77808/27/2022 Data from: https://www.neighborhoodatlas.[facility]/. Last address used for ihkojaneraj[address]CommentsUnknownSex and Gender InformationValueDate RecordedSex Assigned at BirthNot on fileLegal SexFemale 06/29/2022 3:15 PM ESTGender IdentityNot on fileSexual OrientationNot on file Plan of Treatment Health MaintenanceDue DateLast DoneCommentsAnxiety Slcetxcth21/26/2006Depression Dfgthzyti16/26/2006HIV Lrcpebaqq00/26/2006Hepatitis C Zdpizyiud75/26/2006 DTaP,Tdap,Td Vaccine (1 - Tdap)12/15/2006Hepatitis B Vaccine (1 of 3 - 19+ 3- dose series)12/15/2006Cervical Cancer Ebphzcpca94/26/2009HPV Vaccine (1 - 3-dose SCDM series)12/15/2014Covid-19 Vaccine (1 - 2024- season)2024Influenza Vaccine (#1)2024 Insurance Care Teams Team MemberRelationshipSpecialtyStart DateEnd Date Gregory Dutton DO [address] [place] [address] [place] [address] Ob/Gyn12/20/23
--- OUTSIDE RECORDS SUMMARY | 2025-03-12 10:39 | XMS_ITS | Encounter Summary ---
Author Organization [facility] Address [address] [facility] [place] [address] Care Team Providers Care Distribution Specialist Name Role Phone Unavailable Primary Care Provider Unavailabl e Encounter Details DateTypeDepartmentCare Team (Latest Contact Info)Vyldapcuxcp42/10/2025amboo flowsheet NOMAriella SANTACRUZ [address] [place] [address] Gregory Dutton DO [address] [facility] [address] [place], [facility]11 Social History Tobacco UseTypesPacks/DayYears UsedDateSmoking Tobacco: Every DaySmokeless Tobacco: CurrentAlcohol UseStandard Drinks/WeekCommentsNot Currently0 (1 standard drink = 0.6 oz pure alcohol)CommentsNoSex and Gender InformationValueDate RecordedSex Assigned at BirthNot on fileLegal SexFemale 02/18/2023 9:05 AM EDTGender IdentityNot on fileSexual OrientationNot on file documented as of this encounter Plan of Treatment DateTypeDepartmentCare Team (Latest Contact Info)Nzrxggakmwr89/17/2025 1:00 PM ESTOffice Visit [facility] Michelle SANTACRUZ [address] [place] [address] Gregory Dutton DO [address] [place], [facility]11 documented as of this encounter Visit Diagnoses Not on filedocumented in this encounter
--- NOTE | 2025-03-12 11:13 | XR_ITS ---
The [place] [id number] Patient Name: IMMANUEL OATES MRN: [id number] date: 1985 Sex: F [facility] Patient Location: [facility] Accession/Order Number: [id number] Exam Date: 03/12/2025 11:22 Report Date: 03/12/2025 11:34 At the request of: HELENA CHAN DO Procedure: XR chest 2V PA AND LATERAL CHEST: CLINICAL HISTORY: Preoperative clearance. Patient vapes. COMPARISON: None A calcified granuloma is visualized on the left. There is no focal parenchymal consolidation, effusion or pneumothorax. The cardiac, hilar and mediastinal silhouettes are within normal limits. There is no vascular congestion. The visualized bony thorax is intact. Suture material and clips are seen in the epigastric region. There are also clips at the right upper quadrant. XR/XR chest 2V IMPRESSION: NO ACUTE CARDIOPULMONARY ABNORMALITY. Impression dictated by: Deborah Herron M.D. 03/12/2025 11:34 AM Dictation Location: [place] [address] Electronically authenticated by: [id number] Y Date: 03/12/2025 11:34
== END 2025-03-12 10:37 | disposition home or self-care (01) ==
LOC: PST 10:37
PROVIDERS: PCP Nurse Practitioner Family; Visit Provider Obstetrics & Gynecology
DX: Z01.810 Encounter for preprocedural cardiovascular examination (principal); N92.0 Excessive and frequent menstruation with regular cycle; R10.30 Lower abdominal pain, unspecified; R10.9 Unspecified abdominal pain
CPT/HCPCS: 71046

== ENCOUNTER 2025-03-22 09:55 | Outpatient (OUT) | payer OTHER, SELFPAY ==
--- OUTSIDE RECORDS SUMMARY | 2025-03-22 09:58 | XMS_ITS | Clinical Summary ---
Author Organization [employer] Address [id number] [address] [place] [address] Care Team Providers Care Message Clerk Name Role Phone Dyana Velazquez APRN-ANIMAL FEEDER Primary Care Provide r Allergies Active AllergyReactionsCriticalityNoted [...] tablet 5Active Active Problems ProblemNoted DateDiagnosed DatePostcoital yutrnhou02/22/2023Chronic SI joint pain10/11/2022ony twaxllwlw42/22/2023Pelvic duvsulufah51/22/2023History of Wero-en-Y gastric vmagyn0704/17/2022 Overview (04/17/2022): 03/06/21 Dr. Maza in [place] Platelet function ombmxy3810/07/2020Migraine without aura and without status migrainosus, not bgpxerngznv68/20/2020Primary lusawiet91/20/2020Disruptions of 24 hour sleep-wake cycle03/11/2020Carpal tunnel syndrome on both sides03/11/2020 Hx of tubal lcmssekl83/31/2017 Overview (02/19/2017): 2016 PCOS (polycystic ovarian syndrome)02/19/2017 Overview (02/19/2017): Per patient report FibromyalgiaAsthma Resolved Problems ProblemNoted DateDiagnosed DateResolved DateVisual teydwzcojsu43/20/2020 12/31/2022 Encounters DateTypeDepartmentCare HeheNyffsdnnwdt16/24/2025Results Follow-Up [facility] [address] [place] [phone] Gabo Ramesh MD X-ray chest 2 views03/12/2025Orders Only [facility] [address] [place] [phone] External, Scanning Provider from Last 3 Months Family History Medical HistoryRelationNameCommentsBleeding DisorderBrotherAsthmaDaughter Bleeding DisorderDaughterCrohn's [...] housing, medical care, and heating?Not hard at all07/09/2025PHQ-2AnswerDate RecordedTotal Ofcmx019PRAPARE - TransportationAnswerDate RecordedIn the past 12 months, [...] stay in as a part of a household?No10/28/2024hildcareAnswer Date LaljanyxYjuqqeswqOilrtdp36/12/2019EmploymentAnswerDate RecordedEmployment Izgttjp2610/01/2018Hunger ScreeningAnswerDate RecordedWithin the past 12 months we worried whether our food would run out before we got money to buy more.Never True10/30/2024Within the past 12 months the food we bought just didn't last and we didn't have money to get more.Never True10/30/2024Purpose - LifeAnswerDate RecordedPurpose and direction in hthqPlvnkcd18/18/2021CommentsNoSex and Gender InformationValueDate RecordedSex Assigned at FxqsgDdeomx25/07/2023 9:43 PM ESTLegal OnwFzaayr04/06/2015 11:39 AM EDTGender VtjvkkkaCmhfda51/07/2023 9:43 PM ESTSexual DmpyjbjfbhqDtoqqpnu81/07/2023 9:43 PM ESTOccupationIndustryJob Start DateJob End DateunemployedNot on fileNot on fileNot on file Last Filed Vital Signs Vital SignReadingTime TakenCommentsBlood Zcizzvmz283/66010/30/2024 10:18 AM EDT Jzsgn686910/30/2024 10:18 AM OVMOzapputiogn32.8 ??C (98.2 ??F)02/14/2023 8:25 AM EDTRespiratory Mnlk678510/30/2024 10:18 AM EDTOxygen Cdssydudpk09%10/30/2024 10:18 AM EDTInhaled Oxygen Concentration--Vodxam86.4 kg (131 lb)10/30/2024 10:18 AM ILIUalked073.5 cm (5' 2 )10/30/2024 10:18 AM EDTBody Mass Index23.9610/30/2024 10:18 AM EDT Plan of Treatment Health MaintenanceDue DateLast DoneCommentsInfluenza Nscewcn7812/21/2024 02/06/2022, 02/01/2022, 02/22/2021, Additional history existsDTaP,Tdap and Td Vaccines (7 - Td or Tdap), 07/28/1998, 11/28/1992, Additional history existsAdult BMI Xpdqczmew44Depression Yubhwidms25Tobacco Hlubhhyep72Pap Smear , 02/11/2023, 02/11/2023, Additional history exists Medical Devices Not on file Procedures Procedure NamePriorityDate/TimeAssociated DiagnosisCommentsXR CHEST 2 VWSRoutine 03/12/2025 HIGH RISK HPV W/PYOILmgvtfj59/23/2023 4:46 AM EDT Pap smear, as part of routine gynecological examination from Last 3 Months or Most Recently Relevant to Health Maintenance Results * X-ray chest 2 views (03/12/2025)Anatomical RegionLateralityModalityBody, Chest N/AComputed RadiographySpecimen (Source)Anatomical Location / Laterality Collection Method / VolumeCollection TimeReceived Time03/12/2025 Narrative Authorizing ProviderResult TypeResult StatusScanning Provider ExternalIMG DIAGNOSTIC IMAGING ORDERABLESEdited Result - Final * High risk HPV w/carmita (02/11/2023 4:46 AM EDT)ComponentValueRef RangeTest MethodAnalysis TimePerformed AtPathologist SignatureHpv specimen typeThinPrep 02/12/2023 4:47 AM EDTFPOMONA VALLEY HOSPITAL MEDICAL CENTERHpv 16NegativeNegative^Negative 02/13/2023 6:03 AM [facility] LABHpv 18Negative Negative^Xbgnioks88/25/2023 6:03 AM [facility] LABOther high risk hpvNegativeNegative^Pwprmxif74/25/2023 6:03 AM [facility] LABComment: HPV types 31,33,35,39,45,52,56,58,59,66 and 68 DNA were undetectable. Specimen (Source)Anatomical Location / LateralityCollection Method / Volume Collection TimeReceived QvilYWBXK93/23/2023 4:46 AM EDT1 4:47 AM EDT Narrative Authorizing ProviderResult TypeResult StatusCoristerling Kinney MDLAB BLOOD ORDERABLESFinal ResultPerforming OrganizationAddressCity/State/ZIP CodePhone Number [facility] [address] [facility], [place] [address] [facility] [address] [place] [address], [address] [place] [address] from Last 3 Months or Most Recently Relevant to Health Maintenance Insurance Care Teams Team MemberRelationshipSpecialtyStart DateEnd Date Dyana Velazquez APRN-ANIMAL FEEDER [address] [place] [address] PCP - GeneralFaidly Medicine06/25/23
--- OUTSIDE RECORDS SUMMARY | 2025-03-22 09:58 | XMS_ITS | Encounter Summary ---
Author Organization [facility] Address [address] [place] [address] Care Team Providers Care Bonderite Operator Name Role Phone Unavailable Primary Care Provider Unavailabl e Encounter Details DateTypeDepartmentCare Team (Latest Contact Info)Wymelbjcraf61/21/2025linisync Result Encounter [facility] External Department Unsolicited Helena Dutton, DO [address] [place], [place] [id number] Social History Tobacco UseTypesPacks/DayYears UsedDateSmoking Tobacco: Every DaySmokeless Tobacco: CurrentAlcohol UseStandard Drinks/WeekCommentsNot Currently0 (1 standard drink = 0.6 oz pure alcohol)CommentsNoSex and Gender InformationValueDate RecordedSex Assigned at BirthNot on fileLegal SexFemale 02/18/2023 9:05 AM EDTGender IdentityNot on fileSexual OrientationNot on file documented as of this encounter Plan of Treatment DateTypeDepartmentCare Team (Latest Contact Info)Lduzgfxkjux44/17/2025 1:00 PM ESTOffice Visit NOMAriella [place] O[facility] [address] [facility] [address] [place] [phone] Helena Dutton DO [address] [place], [place] [phone] documented as of this encounter Procedures Procedure NamePriorityDate/TimeAssociated DiagnosisCommentsXR CHEST 2V105/12/2024 11:34 AM EST documented in this encounter Results * XR CHEST 2V (03/12/2025 11:34 AM EST)Anatomical RegionLateralityModalityOther Specimen (Source)Anatomical Location / LateralityCollection Method / Volume Collection TimeReceived Time03/12/2025 11:34 AM EST Narrative 03/12/2025 11:36 AM EST [facility] ?[address] ? [place], [facility] ?XRay Report ? Signed ? Patient: ICKES,ASHLEY ? MR#: [id number] ?? : 1985 ?Acct:[id number] ?? Age/Sex: 39 / F ?ADM Date: 03/12/25 ?? Loc: PST ? Attending Dr: Helena Dutton D.O. ? Ordering Physician: Helena Dutton D.O. ?? Date of Service: 03/12/25 ?? Procedure(s): XR chest 2V ?? Accession Number(s): [id number] ? cc: Helena Dutton D.O.; Dyana Velazquez NP ? [facility] ? [address] ? [place] [address] ? Patient Name: ?? ASHLEY ??ICKES ? MRN: [facility]:[id number] ? date: 1985 ?Sex: F ?? Assigned Patient Location: SURGOUT ?? Current Patient Location: SURGOUT ?? Accession/Order Number: [id number] ?? Exam Date: 03/12/2025 ??11:22 ?Report Date: 03/12/2025 ??11:34 ? At the request of: ?? HELENA ??MARIJA ??DO ? Procedure: ??XR chest 2V ? PA AND LATERAL CHEST: ? CLINICAL HISTORY: Preoperative clearance. ??Patient vapes. ? COMPARISON: None ? A calcified granuloma is visualized on the left. There is no focal parenchymal ?? consolidation, effusion or pneumothorax. ?? The cardiac, hilar and mediastinal ?? silhouettes are within normal limits. ?? There is no vascular congestion. ?? The ?? visualized bony thorax is intact. ?? Suture material and clips are seen in the ?? epigastric region. ??There are also clips at the right upper quadrant. ? XR/XR chest 2V ?? IMPRESSION: ? NO ACUTE CARDIOPULMONARY ABNORMALITY. ? Impression dictated by: Deborah Herron M.D. ??03/12/2025 11:34 AM ? Dictation Location: RADIO-PC-02 ? Electronically authenticated by: [id number] ??Y ?? Date: 03/12/2025 ??11:34 ? Dictated By: ?Deborah Herron M.D. ? Signed By: ?03/12/251135 ? DD/ ? TD/TT: ? Sessions Clerk: Procedure Note Radiology, Radiologist, - 03/12/2025 [place] [address] XRay Report Signed Patient: ANI OATES#: [id number] : 1985Acct:[id number] Age/Sex: 39 / FADM Date: 03/12/25 Loc: [facility] Attending Dr: Helena Dutton D.O. Ordering Physician: Helena Dutton D.O. Date of Service: 03/12/25 Procedure(s): XR chest 2V Accession Number(s): [id number] cc: Helena Dutton D.O.; Dyana Velazquez NP [facility] [place] [id number] Patient Name: ASHLEY OATES MRN: [id number] date: 1985 Sex: F Assigned Patient Location: [facility] Current Patient Location: [facility] Accession/Order Number: [id number] Exam Date: 03/12/2025 11:22 Report Date: 03/12/2025 11:34 At the request of: HELENA DUTTON DO Procedure: XR chest 2V PA AND LATERAL CHEST: CLINICAL HISTORY: Preoperative clearance. Patient vapes. COMPARISON: None A calcified granuloma is visualized on the left. There is no focalparenchymal consolidation, effusion or pneumothorax. The cardiac, hilar andmediastinal silhouettes are within normal limits. There is no vascular congestion.The visualized bony thorax is intact. Suture material and clips are seen inthe epigastric region. There are also clips at the right upper quadrant. XR/XR chest 2V IMPRESSION: NO ACUTE CARDIOPULMONARY ABNORMALITY. Impression dictated by: Deborah Herron M.D. 03/12/2025 11:34 AM Dictation Location: [place] [address] Electronically authenticated by: [id number] Y Date: :34 Dictated By: Deborah Herron M.D. Signed By:03/12/25 1136 DD/ 1134 TD/TT: Sessions Clerk: Authorizing ProviderResult TypeResult StatusCorey Marija DOCLINISYNC IMAGINGFinal Result documented in this encounter Visit Diagnoses Not on filedocumented in this encounter
--- OUTSIDE RECORDS SUMMARY | 2025-03-22 09:58 | XMS_ITS | Clinical Summary ---
Author Organization [facility] Address [address] [place] [address] Care Team Providers Care Edge Inker Heels Name Role Phone Gregory Dutton DO Unavailable [phone] Social History Tobacco UseTypesPacks/DayYears UsedDateSmoking Tobacco: Never AssessedArea Deprivation IndexAnswerDate RecordedNational Score (1-100), lower number is lower fwlj180408/27/2022State Score (1-10), lower number is lower rhtm34508/27/2022 Data from: https://www.neighborhoodatlas.[facility]/. Last address used for jkcrzpl[address]CommentsUnknownSex and Gender InformationValueDate RecordedSex Assigned at BirthNot on fileLegal SexFemale 06/29/2022 3:15 PM ESTGender IdentityNot on fileSexual OrientationNot on file Plan of Treatment Health MaintenanceDue DateLast DoneCommentsAnxiety Ahoxfqjko07/26/2006Depression Xtkbhceur78/26/2006HIV Gdzytjdoj92/26/2006Hepatitis C Vovxgrwfl38/26/2006 DTaP,Tdap,Td Vaccine (1 - Tdap)12/15/2006Hepatitis B Vaccine (1 of 3 - 19+ 3- dose series)12/15/2006Cervical Cancer Zslwuhrfm40/26/2009HPV Vaccine (1 - 3-dose SCDM series)12/15/2014Covid-19 Vaccine (1 - 2024- season)2024Influenza Vaccine (#1)2024 Insurance Care Teams Team MemberRelationshipSpecialtyStart DateEnd Date Gregory Dutton DO [address] [place] [address] [place] [address] Ob/Gyn12/20/23
--- OUTSIDE RECORDS SUMMARY | 2025-03-22 09:58 | XMS_ITS | Encounter Summary ---
Author Organization [facility] Address [facility] [address] [place] [address] Care Team Providers Care Interlocker Maintainer Name Role Phone Dyana Velazquez APRN-WEB MARKETING COORDINATOR Primary Care Provide r Encounter Details DateTypeDepartmentCare Team (Latest Contact Info)Zsvphuoknhh67/21/2025Orders Only [facility] [address] [place] [address] External, Scanning Provider Social History Tobacco UseTypesPacks/DayYears UsedDateSmoking Tobacco: FormerCigarettes Smokeless Tobacco: NeverAlcohol UseStandard Drinks/WeekCommentsNot Currently0 (1 standard drink = 0.6 oz pure alcohol)sociallyOverall Financial Resource Strain (CARDIA)AnswerDate RecordedHow hard is it for you to pay for the very basics like food, housing, medical care, and heating?Not hard at all10/28/2024PHQ-2 AnswerDate RecordedTotal Lgiso259PRAPARE - TransportationAnswerDate RecordedIn the past 12 months, [...] stay in as a part of a household?No10/28/2024 ChildcareAnswerDate OlcvlvlxGqzmscoqrZpngtnk16/12/2019EmploymentAnswerDate MibkqxjqGtxvoxmsgvQqqqzvm87/12/2019Hunger ScreeningAnswerDate RecordedWithin the past 12 months we worried whether our food would run out before we got money to buy more.Never True10/30/2024Within the past 12 months the food we bought just didn't last and we didn't have money to get more.Never True10/30/2024Purpose - LifeAnswerDate RecordedPurpose and direction in lydfRyageke22/18/2021 CommentsNoSex and Gender InformationValueDate RecordedSex Assigned at Pmzyac1006/26/2022 9:43 PM ESTLegal JwkPddtbx79/06/2015 11:39 AM EDTGender ZcvyiujjKnjlpa93/07/2023 9:43 PM ESTSexual GadwrdtqziiFuqxsypb80/07/2023 9:43 PM ESTOccupationIndustryJob Start DateJob End DateunemployedNot on fileNot on file Not on filedocumented as of this encounter Plan of Treatment Not on file documented as of this encounter Procedures Procedure NamePriorityDate/TimeAssociated DiagnosisCommentsXR CHEST 2 VWSRoutine 03/12/2025 documented in this encounter Results * X-ray chest 2 views (03/12/2025)Anatomical RegionLateralityModalityBody, Chest N/AComputed RadiographySpecimen (Source)Anatomical Location / Laterality Collection Method / VolumeCollection TimeReceived Time03/12/2025 Narrative Authorizing ProviderResult TypeResult StatusScanning Provider ExternalIMG DIAGNOSTIC IMAGING ORDERABLESEdited Result - Final documented in this encounter Visit Diagnoses Not on filedocumented in this encounter Additional Health Concerns AssessmentNoted TimePHQ-9 Depression Total Score: 10:19 AM EDTA Body Mass Index follow-up plan has been documented for the hgtmgey9402/11/2023 3:32 PM EDTdocumented as of this encounter Care Teams Team MemberRelationshipSpecialtyStart DateEnd Date Dyana Velazquez, GRETA-WEB MARKETING COORDINATOR [address] [place] [address] PCP - GeneralFamily Medicine06/25/23documented as of this encounter
--- OUTSIDE RECORDS SUMMARY | 2025-03-22 09:58 | XMS_ITS | Clinical Summary ---
Author Organization [facility] Address [address] [place] [address] Care Team Providers Care Farmworker Name Role Phone Unavailable Primary Care Provider [...] mouth 3 (three) times a day as ihraru994Active midodrine (Proamatine) 5 MG tablet Take 5 mg by mouth in the morning and 5 mg at noon and 5 mg in the evening. 5Active Vraylar 1.5 MG capsule 5Active escitalopram (Lexapro) 5 MG tablet 5Active Encounters DateTypeDepartmentCare WmlzHagawxczytt03/21/2025Clinisync Result Encounter [facility] External Department Unsolicited Helena Dutton DO 03/01/2025 10:40 AM ESTConsult [facility] [address] [place] [address] [place] [phone] Helena Dutton DO Pre-op examination; Menorrhagia with regular cycle; Pelvic pain in female; Abdominal pain, unspecified abdominal ehrjsqkq26/10/2025amboo flowsheet [facility] Michelle SANTACRUZ [address] [facility] [place] [address] Helena Dutton DO 02/01/2025 8:30 AM EDTOffice Visit NOMAriella SANTACRUZ [address] [facility] [place] [address] Karena Alvares PA Menorrhagia with regular cycle02/01/2025amboo flowsheet [facility] Michelle SANTACRUZ [address] [facility] [place] [address] Karena Alvares PA 01/25/2025Travelfrom Last 3 Months Family History Medical HistoryRelationNameCommentsheart issuesMaternal GrandfatherDiabetes MotherRuthMigrainesMotherRuthRelationNameStatusCommentsMaternal Grandfather MotherRuthAlive Social History Tobacco UseTypesPacks/DayYears UsedDateSmoking Tobacco: Every DaySmokeless Tobacco: Current Tobacco Cessation:Ready to Q uit: Not Asked; Counseling Given: Not Answered Alcohol UseStandard Drinks/WeekCommentsNot Currently0 (1 standard drink = 0.6 oz pure alcohol)CommentsNoSex and Gender InformationValueDate RecordedSex Assigned at BirthNot on fileLegal RsiFqvmyu86/30/2023 9:05 AM EDTGender Identity Not on fileSexual OrientationNot on file Last Filed Vital Signs Vital SignReadingTime TakenCommentsBlood Mpsonset293/6803/01/2025 10:25 AM EST Pulse--Temperature--Respiratory Rate--Oxygen Saturation--Inhaled Oxygen Concentration--Pormmy00.7 kg (133 lb 12.8 oz)03/01/2025 10:25 AM ESTHeight--Body Mass Index-- Plan of Treatment DateTypeDepartmentCare Team (Latest Contact Info)Osljhvabgyn04/17/2025 1:00 PM ESTOffice Visit NOMAriella SANTACRUZ [address] [facility] [place] [address] Helena Dutton, [address] [facility] [place] [address] Procedures Procedure NamePriorityDate/TimeAssociated DiagnosisCommentsXR CHEST 2V105/12/2024 11:34 AM EST from Last 3 Months Results * XR CHEST 2V (03/12/2025 11:34 AM EST)Anatomical RegionLateralityModalityOther Specimen (Source)Anatomical Location / LateralityCollection Method / Volume Collection TimeReceived Time03/12/2025 11:34 AM EST Narrative 03/12/2025 11:36 AM EST [facility] ?[address] ? [place] [address] ?XRay Report ? Signed ? Patient: ICKES,ASHLEY ? MR#: [id number] ?? : 1985 ?Acct:[id number] ?? Age/Sex: 39 / F ?ADM Date: 03/12/25 ?? Loc: PST ? Attending Dr: Helena Dutton D.O. ? Ordering Physician: Helena Dutton D.O. ?? Date of Service: 03/12/25 ?? Procedure(s): XR chest 2V ?? Accession Number(s): [id number] ? cc: Helena Dutton D.O.; Dyana Velazquez NP ? [facility] ? [address] ? [place] [address] ? Patient Name: ?? ASHLEY ??ICKES ? MRN: [facility]:[id number] ? date: 1985 ?Sex: F ?? Assigned Patient Location: SURGOUT ?? Current Patient Location: SURGOUT ?? Accession/Order Number: [id number] ?? Exam Date: 03/12/2025 ??11:22 ?Report Date: [...] M.D. ??03/12/2025 11:34 AM ? Dictation Location: [facility]02 ? Electronically authenticated by: [id number] ??Y ?? Date: 03/12/2025 ??11:34 ? Dictated By: ?Deborah Herron M.D. ? Signed By: ?03/12/25 1136 ? DD/ 1134 ? TD/TT: ? Resaw Carriage Operator: Procedure Note Radiology, Radiologist, MD - 03/12/2025 [place] [address] XRay Report Signed Patient: ANI OATES#: [id number] : 1985Acct:[id number] Age/Sex: 39 / FADM Date: 03/12/25 Loc: [facility] Attending Dr: Helena Dutton D.O. Ordering Physician: Helena Dutton D.O. Date of Service: 03/12/25 Procedure(s): XR chest 2V Accession Number(s): [id number] cc: Helena Dutton D.O.; Dyana Velazquez NP The [place] [address] Patient Name: ASHLEY OATES MRN: [facility]:[id number] date: 1985 Sex: F Assigned Patient Location: [facility] Current Patient Location: [facility] Accession/Order Number: [id number] Exam Date: 03/12/2025 11:22 Report Date: 03/12/2025 [...] Herron M.D. 03/12/2025 11:34 AM Dictation Location: [place] [address] Electronically authenticated by: [id number] Y Date: 1:34 Dictated By: Deborah Herron M.D. Signed By:03/12/25 1136 DD/ 1134 TD/TT: Resaw Carriage Operator: Authorizing ProviderResult TypeResult StatusCorey Marija DOCLINISYNC IMAGINGFinal Result from Last 3 Months Insurance
--- OUTSIDE RECORDS SUMMARY | 2025-03-22 09:58 | XMS_ITS | Encounter Summary ---
Author Organization [facility] Address [facility] [address] [place] [address] Care Team Providers Care Mailing Manager Name Role Phone Dyana Velazquez APRN-SOLAR SYSTEM DESIGNER Primary Care Provide r Encounter Details DateTypeDepartmentCare Team (Latest Contact Info)Nrmbirwbobx93/24/2025Results Follow-Up [facility] [address] [place] [address] Gabo Ramesh MD [address] [place] [address] X-ray chest 2 views Social History Tobacco UseTypesPacks/DayYears UsedDateSmoking Tobacco: FormerCigarettes Smokeless Tobacco: NeverAlcohol UseStandard Drinks/WeekCommentsNot Currently0 (1 standard drink = 0.6 oz pure alcohol)sociallyOverall Financial Resource Strain (CARDIA)AnswerDate RecordedHow hard is it for you to pay for the very basics like food, housing, medical care, and heating?Not hard at all10/28/2024PHQ-2 AnswerDate RecordedTotal Fumpa011PRAPARE - TransportationAnswerDate RecordedIn the past 12 months, [...] as a part of a household?No10/28/2024 ChildcareAnswerDate BaehxrdpGyhhgvhbaVdweyfv49/12/2019EmploymentAnswerDate NqgptfpiMzysnupjjrCgfvhdh12/12/2019Hunger ScreeningAnswerDate RecordedWithin the past 12 months we worried whether our food would run out before we got money to buy more.Never True10/30/2024Within the past 12 months the food we bought just didn't last and we didn't have money to get more.Never True10/30/2024Purpose - LifeAnswerDate RecordedPurpose and direction in fccnMpbpomc62/18/2021 CommentsNoSex and Gender InformationValueDate RecordedSex Assigned at Ryrzpt7106/26/2022 9:43 PM ESTLegal OmzIufvdp67/06/2015 11:39 AM EDTGender CycahmweQameom45/07/2023 9:43 PM ESTSexual UqmxaqgycusVhsmnhzf16/07/2023 9:43 PM ESTOccupationIndustryJob Start DateJob End DateunemployedNot on fileNot on file Not on filedocumented as of this encounter Plan of Treatment Not on file documented as of this encounter Visit Diagnoses Not on filedocumented in this encounter Additional Health Concerns AssessmentNoted TimePHQ-9 Depression Total Score: 10:19 AM EDTA Body Mass Index follow-up plan has been documented for the nfeovuy7702/11/2023 3:32 PM EDTdocumented as of this encounter Care Teams Team MemberRelationshipSpecialtyStart DateEnd Date Dyana Velazquez APRN-SOLAR SYSTEM DESIGNER [address] [place] [address] PCP - GeneralFamily Medicine06/25/23documented as of this encounter
[2025-03-22 10:26] LABS: Hematocrit 36.6 % (36.0-48.0); Hemoglobin 12.1 g/dL (12.0-16.0); Immature Granulocytes Abs Auto 0.01 10^3/uL (0.00-0.03); Immature Granulocytes Pct Auto 0.1 % (0.0-0.5); Lymphocytes Absolute Auto 1.7 10^3/uL (1.2-3.8); Mean Corpuscular HGB Conc 33.1 g/dL (29.9-35.2); Mean Corpuscular Hemoglobin 29.2 pg (26.7-34.0); Mean Corpuscular Volume 88.2 fL (81.0-99.0); Platelet Count 300 10^3/uL (150-450); Red Blood Count 4.15 10^6/uL (4.20-5.40); White Blood Count 7.2 10^3/uL (4.0-11.0)
== END 2025-03-22 09:56 | disposition home or self-care (01) ==
LOC: LAB 09:56
PROVIDERS: PCP Nurse Practitioner Family; Visit Provider Nurse Practitioner
DX: Z01.812 Encounter for preprocedural laboratory examination (principal)
CPT/HCPCS: 36415; 85025

== ENCOUNTER 2025-03-26 07:03 | Day surgery (SDC) | payer OTHER, SELFPAY ==
--- OUTSIDE RECORDS SUMMARY | 2024-10-26 04:45 | XMS_ITS | Continuity of Care Document ---
Author Organization [email or web address] Address [address] [facility] [place] [address] Phone Care Team Providers Care Mechanical Operator Name Role Phone Joseline DARANano Unavailable Unavailable Allergies, Adverse Reactions, Alerts Substance Reaction Status Criticality No Known Allergies Active No Inform ation Medications Medication Instructions Dosage Effective Dates (start - stop) Status Comments Tylenol 325 mg tablet take 2 tablet by o ral route every 6 hours as needed 650 MG - Active Procedures Procedure Date OFFICE/OUTPATIENT VISIT, EST OFFICE/OUTPATIENT VISIT, EST OFFICE/OUTPATIENT VISIT, EST OFFICE/OUTPATIENT VISIT, EST PSYTX PT&/FAMILY 60 MINUTES OFFICE/OUTPATIENT VISIT, EST PSYTX PT&/FAMILY 60 MINUTES OFFICE/OUTPATIENT VISIT, EST PSYTX PT&/FAMILY 60 MINUTES PSYTX PT&/FAMILY 60 MINUTES PSYTX PT&/FAMILY 60 MINUTES VOID TICKET OFFICE/OUTPATIENT VISIT, EST PSYTX PT&/FAMILY 60 MINUTES PSYTX PT&/FAMILY 60 MINUTES PSYTX PT&/FAMILY 60 MINUTES PSYTX PT&/FAMILY 60 MINUTES PSYCH DIAGNOSTIC EVALUATION LAPARO CHOLECYSTECTOMY/GRAPH LAPARO CHOLECYSTECTOMY/GRAPH ASSIST OFFICE/OUTPATIENT VISIT, EST UPPR GI ENDOSCOPY, DIAGNOSIS OFFICE/OUTPATIENT VISIT, EST POSTOP FOLLOW-UP VISIT POSTOP FOLLOW-UP VISIT POSTOP FOLLOW-UP VISIT Gastric Bypass LAP GASTRIC BYPASS/STEPHANIE-EN-Y OFFICE/OUTPATIENT VISIT, EST PSYCH DIAGNOSTIC EVALUATION PSYCL/NRPSYC TST PHY/QHP [facility] PSYCL/NRPSYC TST PHY/QHP OFFICE/OUTPATIENT VISIT, NEW Advance Directives Directive Yes / No Effective Date File Name No Information Encounters Encounter Description Practice Location Reason(s) For Visit Diagnoses Date Provider Providers Copied on Encounter OFFICE/OUTPA TIENT VISIT, [employer] [facility], [address] [place] [address] [address], [place], [place], [id number] , [place] tel:[phone] [facility] No Information 5 Joseline Mcgill. [address] [facility] [address], [place], [place], [id number], [place]. tel:[phone] Referring Provider: Nano Trevizo, [facility] [address] [facility] [address], [place], [address]. tel:[phone] OFFICE/OUTPA TIENT VISIT, [employer] [facility], [address] [facility] [address], [place], [place], [id number] , [place] tel:[phone] [facility] General Surgery panniculitis affecting back (chief complaint) Panniculitis affecting regions of neck and back, site unspErythema intertrigo 4 Matty Jaquez. [address] [facility] [address], [place], [place], [address], [place]. tel:[phone] Referring Provider: Roberto Starr DO [facility] [address], [place], [address]. tel:[phone] OFFICE/OUTPA TIENT VISIT, [facility] [employer] [facility], [address] [place] [address] [address], [place], [place], [id number] , [place] tel:[phone] [facility] No Information 3 Joseline Mcgill. [address] [place] [address] [address], [place], [place], [address], [place]. tel:[phone] Referring Provider: Nano Trevizo, [address] [place] [address] [address], [place], [address]. tel:[phone] PSYTX PT&/FAMILY 60 MINUTES [place] [employer] [facility], [address] [place] [address], [place], [place], [id number] , [place] [phone] [facility] No Information 3 Ramón Paez. [address] [place] [address] [address], [place], [place], [address], [place]. tel:[phone] Referring Provider: Jeannine Melgar, [address] [place] [address] [address], [place], [address]. tel:[phone] OFFICE/OUTPA TIENT VISIT, [facility], [address] [place] [address] [address], [place], [place], [id number] , [place] tel:[phone] [facility] No Information 2 Joseline Mcgill. [address] [place] [address] [address], [place], [place], [address], [place]. tel:[phone] Referring Provider: Nano Trevizo, [address] [place] [address] [address], [place], [address]. tel:[phone] PSYTX PT&/FAMILY 60 [facility], [address] [place] [address] B, [place], [place], [id number] , [place] tel:[phone] [facility] No Information 2 Ramón Paez. [address] [place] [address] [address], [place], [id number], [place]. tel:[phone] Referring Provider: Jeannine Melgar, [address] [place] [address], [place], [address]. tel:[phone] OFFICE/OUTPA TIENT VISIT, [facility], [address] [place] [address] [address], [place], [address] , [place] tel:[phone] [facility] No Information Sep-0 2 Link Vázquez. [address] [place] [address] [address], [place], [id number], [place]. tel:[phone] Referring Provider: Gurpreet Reza, [address] [place] [address], [place], [address]. tel:[phone] PSYTX PT&/FAMILY 60 MINUTES [facility], [address] [place] [address] B, [place], [address] , [place] tel:[phone] [facility] No Information 2 Ramón Paez. [address] [place] [address], [place], [place], [id number], [place]. tel:[phone] Referring Provider: Jeannine Melgar, [address] [place] [address] [address], [place], [address]. tel:[phone] PSYTX PT&/FAMILY 60 [facility], [address] [place] [address] B, [place], [id number] , [place] tel:[phone] [facility] No Information 2 Ramón Paez. [address] [place] [address] [address], [place], [place], [address], [place]. tel:[phone] Referring Provider: Jeannine Melgar, [address] [place] [address] [address], [place], [address]. tel:[phone] PSYTX PT&/FAMILY 60 MINUTES [facility], [address] [place] [address] B, [place], [place], [id number] , [place] tel:[phone] [facility] No Information 2 Ramón Paez. [address] [place] [address], [place], [place], [id number], [place]. tel:[phone] Referring Provider: Jeannine Melgar, [address] [place] [address], [place], [address]. tel:[phone] [facility] [employer] [facility], [address] [place] [address], [place], [place], [address] , [place] tel:[phone] [facility] No Information 2 Ramón Paez. [address] [place] [address], [id number], [place]. tel:[phone] Referring Provider: Jeannine Melgar, [address] [place] [address], [place], [address]. tel:[phone] OFFICE/OUTPA TIENT VISIT, [facility], [address] [place] [address], [id number] , [place] [phone] [facility] No Information 2 Link Vázquez. [address] [place] [address], [id number], [place]. tel:[phone] Referring Provider: Gurpreet eRza, [address] [place] [address], [place], [address]. tel:[phone] PSYTX PT&/FAMILY 60 [facility], [address] [place] [address], [place], [address] , [place] tel:[phone] [facility] No Information 2 Ramón Paez. [address] [place] [address], [id number], [place]. tel:[phone] Referring Provider: Jeannine Melgar, [address] [place] [address], [place], [address]. tel:[phone] PSYTX PT&/FAMILY 60 [facility] [employer] [facility], [address] [place] [address], [place], [address] , [place] tel:[phone] [facility] No Information 2 Ramón Paez. [address] [facility] [address], [place], [place], [address], [place]. tel:[phone] Referring Provider: Jeannine Melgar, [address] [place] [address] [address], [place], [address]. tel:[phone] PSYTX PT&/FAMILY 60 [facility], [address] [place] [address] [address], [place], [place], [address] , [place] tel:[phone] [facility] No Information 2 Ramón Paez. [address] [facility] [address], [place], [address], [place]. tel:[phone] Referring Provider: Jeannine Melgar, [address] [place] [address] [address], [place], [address]. tel:[phone] PSYTX PT&/FAMILY 60 [facility], [address] [place] [address] [address], [place], [address] , [place] tel:[phone] [facility] No Information 0 2 Ramón Paez. [address] [facility] [address], [place], [place], [address], [place]. tel:[phone] Referring Provider: Jeannine Melgar, [address] [place] [address] [address], [place], [address]. tel:[phone] PSYCH DIAGNOSTIC EVALUATION [facility], [address] [place] [address] [address], [place], [place], [address] , [place] tel:[phone] [facility] No Information 2 Ramón Paez. [address] [facility] [address], [place], [place], [address], [place]. tel:[phone] Referring Provider: Jeannine Melgar, [address] [place] [address] [address], [place], [address]. tel:[phone] [facility], [address], [place], [place], [address] , [place] tel: [phone] [facility] OP No Information 2 Link Vázquez. [address], [place], [place], [address], [place]. [phone] Referring Provider: Gurpreet Reza, [address] [facility] [address], [place], [address]. [phone] [facility], [address], [place], [place], [address] , [place] tel: [phone] [facility] OP No Information 2 Joseline Mcgill. [address] [facility] [address], [place], [id number], [place]. [phone] Referring Provider: Nano Trevizo, [address] [facility] [address], [place], [address]. [phone] OFFICE/OUTPA TIENT VISIT, [facility], [address], [place], [address] , [place] [phone] [facility] No Information 2 Link Vázquez. [address], [place], [address], [place]. tel:[phone] Referring Provider: Gurpreet Reza, [address] [facility] [address], [place], [address]. tel:[phone] [facility], [address], [place], [address] , [place] [phone] [facility] OP No Information 2 Link Vázquez. [address] [facility] [address], [place], [place], [address], [place]. tel:[phone] Referring Provider: Gurpreet Reza, [address] [facility] [address], [place], [address]. tel:[phone] OFFICE/OUTPA TIENT VISIT, [facility] [employer] [facility], [address] [facility] [address], [place], [place], [address] , [place] tel:[phone] [facility] No Information 2 Link Vázquez. [address] [facility] [address], [place], [address], [place]. tel:[phone] Referring Provider: Gurpreet Reza, [address] [facility] [address], [place], [address]. tel:[phone] [employer] [facility], [address] [place] [address] [address], [place], [place], [address] , [place] tel:[phone] [facility] No Information 2 Joseline Mcgill. [address] [place] [address] [address] [facility], [place], [id number], [place]. tel:[phone] Referring Provider: Nano Trevizo, [address] [place] [address] [address], [place], [address]. tel:[phone] [employer] [facility], [address] [place] [address] [address], [place], [address] , [place] tel:[phone] [facility] No Information 1 Joseline Mcgill. [address] [place] [address] [address], [place], [place], [id number], [place]. tel:[phone] Referring Provider: Nano Trevizo, [address] [place] [address] [address], [place], [address]. tel:[phone] [employer] [facility], [address] [place] [address] [address], [place], [place], [address] , [place] tel:[phone] [facility] No Information 1 Joseline Mcgill. [address] [place] [address] [address], [place], [place], [address], [place]. tel:[phone] Referring Provider: Nano Trevizo, [address] [place] [address] [address], [place], [address]. tel:[phone] [facility] [employer] [facility], [address] [place] [address] Road [address], [place], [place], [address] , [place] tel:[phone] [facility] IP No Information 1 Joseline Mcgill. [address] [facility] [address], [place], [place], [address], [place]. tel:[phone] Referring Provider: Nano Trevizo, [address] [facility] [address], [place], [address]. tel:[phone] [facility], [address] [place] [address] [address], [place], [place], [address] , [place] tel:[phone] [facility] IP No Information 1 Link Vázquez. [address] [facility] [address], [place], [place], [address], [place]. tel:[phone] Referring Provider: Gurpreet Reza, [address] [facility] [address], [place], [address]. tel:[phone] OFFICE/OUTPA TIENT VISIT, [facility], [address] [facility] [address], [place], [address] , [place] [phone] [facility] No Information 1 Link Vázquez. [address] [facility] [address], [place], [place], [address], [place]. tel:[phone] Referring Provider: Gurpreet Reza, [address], [place], [address]. tel:[phone] PSYCH DIAGNOSTIC EVALUATION [facility], [address] [facility] [address], [place], [address] , [place] [phone] [facility] No Information 1 Reg Mckeon. [address] [facility] [address], [place], [place], [address], [place]. tel:[phone] Referring Provider: Linda Finney, [address] [facility] [address], [place], [address]. tel:[phone] OFFICE/OUTPA TIENT VISIT, [employer] [facility] [employer] [facility], [address], [place], [place], [address] , [place] tel:[phone] [facility] No Information Jun- 1 Link Vázquez. [address] [facility] [address], [place], [place], [address], [place]. tel:[phone] Referring Provider: Gurpreet Reza, [address] [facility] [address], [place], [address]. tel:[phone] Family History Family Member Type Diagnosis Age At Onset No Information Payers Payer name Insurance type Covered libertarian ID Hakeem dailey(s) R CI [id number] [employer] [place] [employer] CI [id number] Social History Type Description Quantity Date Captured Comments Sex Female Smoking Status No Information Chief Complaint And Reason For Visit No Information Reason For Referral Reason For Referral No Information History Of Present Illness Encounter Date Complaint History Of Kurtis nt Illness panniculitis affecting back Tiff any [...] to schedule another visit. Functional Status Date Functional Assessmen t No Information Instructions Date Instruction Additional Infor mation No Information Assessments Type Assessment Date No Information Patient Care Teams Name Effective Dates (start - stop) Status Members No Information
[2025-03-12 11:22] VITALS: BP 108/72; PULSE 72; TEMP 36.3; O2SAT 100; BMI 24.5
[2025-03-26] VITALS (15 sets, daily range): BP systolic 83–113; BP diastolic 49–78; PULSE 54–78; TEMP 36.1–36.3; O2SAT 93–98; BMI 25.5
--- OUTSIDE RECORDS SUMMARY | 2025-03-26 07:06 | XMS_ITS | Encounter Summary ---
Author Organization [facility] Address [address] [place] [address] Care Team Providers Care Aircraft Maintenance Instructor Name Role Phone Unavailable Primary Care Provider Unavailabl e Encounter Details DateTypeDepartmentCare Team (Latest Contact Info)Sfkveclzczk13/21/2025linisync Result Encounter [facility] External Department Unsolicited Helena Dutton, DO [address] [place], [place] [address] Social History Tobacco UseTypesPacks/DayYears UsedDateSmoking Tobacco: Every DaySmokeless Tobacco: CurrentAlcohol UseStandard Drinks/WeekCommentsNot Currently0 (1 standard drink = 0.6 oz pure alcohol)CommentsNoSex and Gender InformationValueDate RecordedSex Assigned at BirthNot on fileLegal SexFemale 02/18/2023 9:05 AM EDTGender IdentityNot on fileSexual OrientationNot on file documented as of this encounter Plan of Treatment DateTypeDepartmentCare Team (Latest Contact Info)Tvtrvjadwup35/17/2025 1:00 PM ESTOffice Visit [facility] [address] [facility] [place] [address] Helena Dutton DO [address] [place], [place] [address] documented as of this encounter Procedures Procedure NamePriorityDate/TimeAssociated DiagnosisCommentsXR CHEST 2V105/12/2024 11:34 AM EST documented in this encounter Results * XR CHEST 2V (03/12/2025 11:34 AM EST)Anatomical RegionLateralityModalityOther Specimen (Source)Anatomical Location / LateralityCollection Method / Volume Collection TimeReceived Time03/12/2025 11:34 AM EST Narrative 03/12/2025 11:36 AM EST [facility] ?[address] ? [place], [facility] ?XRay Report ? Signed ? Patient: ICKES,ASHLEY ? MR#: [id number] ?? : 1985 ?Acct:[id number] ?? Age/Sex: 39 / F ?ADM Date: 03/12/25 ?? Loc: PST ? Attending Dr: Helena Dutton D.O. ? Ordering Physician: Helena Dutton D.O. ?? Date of Service: 03/12/25 ?? Procedure(s): XR chest 2V ?? Accession Number(s): [id number] ? cc: Helena Dutton D.O.; Dyana Velazquez NP ? [facility] ? [address] ? [place] [address] ? Patient Name: ?? ASHLEY ??ICKES ? MRN: [facility]:[id number] ? date: 1985 ?Sex: F ?? Assigned Patient Location: SURGOUT ?? Current Patient Location: SURGOUT ?? Accession/Order Number: [id number] ?? Exam Date: 03/12/2025 ??11:22 ?Report Date: [...] Dictation Location: [facility]-02 ? Electronically authenticated by: [id number] ??Y ?? Date: 03/12/2025 ??11:34 ? Dictated By: ?Deborah Herron M.D. ? Signed By: ?03/12/251135 ? DD/ ? TD/TT: ? Dross Puller: Procedure Note Radiology, Radiologist, - 03/12/2025 [place] [address] XRay Report Signed Patient: ANI OATES#: [id number] : 1985Acct:[id number] Age/Sex: 39 / FADM Date: 03/12/25 Loc: [facility] Attending Dr: Helena Dutton D.O. Ordering Physician: Helena Dutton D.O. Date of Service: 03/12/25 Procedure(s): XR chest 2V Accession Number(s): [id number] cc: Helena Dutton D.O.; Dyana Velazquez NP The [place] [id number] Patient Name: ASHLEY OATES MRN: [facility]:[id number] date: 1985 Sex: F Assigned Patient Location: [facility] Current Patient Location: [facility] Accession/Order Number: [id number] Exam Date: 03/12/2025 11:22 Report Date: 03/12/2025 [...] Herron M.D. 03/12/2025 11:34 AM Dictation Location: [place] [address] Electronically authenticated by: [id number] Y Date: :34 Dictated By: Deborah Herron M.D. Signed By:03/12/25 1136 DD/ 1134 TD/TT: Dross Puller: Authorizing ProviderResult TypeResult StatusCorey Marija DOCLINISYNC IMAGINGFinal Result documented in this encounter Visit Diagnoses Not on filedocumented in this encounter
--- OUTSIDE RECORDS SUMMARY | 2025-03-26 07:06 | XMS_ITS | Clinical Summary ---
Author Organization [facility] Address [address] [place] [address] Care Team Providers Care Ground Products Director Name Role Phone Unavailable Primary Care Provider [...] mouth 3 (three) times a day as ccwmff664Active midodrine (Proamatine) 5 MG tablet Take 5 mg by mouth in the morning and 5 mg at noon and 5 mg in the evening. 5Active Vraylar 1.5 MG capsule 5Active escitalopram (Lexapro) 5 MG tablet 5Active Encounters DateTypeDepartmentCare CbipVcuabcmsexz31/21/2025Clinisync Result Encounter [facility] External Department Unsolicited Helena Dutton DO 03/01/2025 10:40 AM ESTConsult [facility] [address] [place] [address] [place] [address] Helena Dutton DO Pre-op examination; Menorrhagia with regular cycle; Pelvic pain in female; Abdominal pain, unspecified abdominal zhyfiqlu93/10/2025amboo flowsheet [facility] Michelle SANTACRUZ [address] [facility] [address] Helena Dutton DO 02/01/2025 8:30 AM EDTOffice Visit NOMAriella SANTACRUZ [address] [facility] [place] [address] Karena Alvares PA Menorrhagia with regular cycle02/01/2025amboo flowsheet [facility] Michelle SANTACRUZ [address] [facility] [address] [place] [address] Karena Alvares PA 01/25/2025Travelfrom Last 3 Months Family History Medical HistoryRelationNameCommentsheart issuesMaternal GrandfatherDiabetes MotherRuthMigrainesMotherRuthRelationNameStatusCommentsMaternal Grandfather MotherRuthAlive Social History Tobacco UseTypesPacks/DayYears UsedDateSmoking Tobacco: Every DaySmokeless Tobacco: Current Tobacco Cessation:Ready to Q uit: Not Asked; Counseling Given: Not Answered Alcohol UseStandard Drinks/WeekCommentsNot Currently0 (1 standard drink = 0.6 oz pure alcohol)CommentsNoSex and Gender InformationValueDate RecordedSex Assigned at BirthNot on fileLegal ZsvAapwoo30/30/2023 9:05 AM EDTGender Identity Not on fileSexual OrientationNot on file Last Filed Vital Signs Vital SignReadingTime TakenCommentsBlood Aztnkazw568/6803/01/2025 10:25 AM EST Pulse--Temperature--Respiratory Rate--Oxygen Saturation--Inhaled Oxygen Concentration--Ygllus59.7 kg (133 lb 12.8 oz)03/01/2025 10:25 AM ESTHeight--Body Mass Index-- Plan of Treatment DateTypeDepartmentCare Team (Latest Contact Info)Frjxmsumdrs89/17/2025 1:00 PM ESTOffice Visit NOMAriella SANTACRUZ [address] [facility] [place] [address] Helena Dutton, [address] [facility] [place] [address] Procedures Procedure NamePriorityDate/TimeAssociated DiagnosisCommentsXR CHEST 2V105/12/2024 11:34 AM EST from Last 3 Months Results * XR CHEST 2V (03/12/2025 11:34 AM EST)Anatomical RegionLateralityModalityOther Specimen (Source)Anatomical Location / LateralityCollection Method / Volume Collection TimeReceived Time03/12/2025 11:34 AM EST Narrative 03/12/2025 11:36 AM EST [facility] ?[address] ? [place] [address] ?XRay Report ? Signed ? Patient: ICKES,ASHLEY ? MR#: [id number] ?? : 1985 ?Acct:[id number] ?? Age/Sex: 39 / F ?ADM Date: 03/12/25 ?? Loc: PST ? Attending Dr: Helena Dutton D.O. ? Ordering Physician: Helena Dutton D.O. ?? Date of Service: 03/12/25 ?? Procedure(s): XR chest 2V ?? Accession Number(s): [id number] ? cc: Helena Dutton D.O.; Dyana Velazquez NP ? [facility] ? [address] ? [place] [address] ? Patient Name: ?? ASHLEY ??ICKES ? MRN: [facility]:[id number] ? date: 1985 ?Sex: F ?? Assigned Patient Location: SURGOUT ?? Current Patient Location: SURGOUT ?? Accession/Order Number: [id number] ?? Exam Date: 03/12/2025 ??11:22 ?Report Date: [...] M.D. ??03/12/2025 11:34 AM ? Dictation Location: [facility]--02 ? Electronically authenticated by: [id number] ??Y ?? Date: 03/12/2025 ??11:34 ? Dictated By: ?Deborah Herron M.D. ? Signed By: ?03/12/25 1136 ? DD/ 1134 ? TD/TT: ? Qc Manager: Procedure Note Radiology, Radiologist, MD - 03/12/2025 [place] [address] XRay Report Signed Patient: ANI OATES#: [id number] : 1985Acct:[id number] Age/Sex: 39 / FADM Date: 03/12/25 Loc: [facility] Attending Dr: Helena Dutton D.O. Ordering Physician: Helena Dutton D.O. Date of Service: 03/12/25 Procedure(s): XR chest 2V Accession Number(s): [id number] cc: Helena Dutton D.O.; Dyana Velazquez NP The [place] [address] Patient Name: ASHLEY OATES MRN: [facility]:[id number] date: 1985 Sex: F Assigned Patient Location: [facility] Current Patient Location: [facility] Accession/Order Number: [id number] Exam Date: 03/12/2025 11:22 Report Date: 03/12/2025 [...] Herron M.D. 03/12/2025 11:34 AM Dictation Location: [place] [address] Electronically authenticated by: [id number] Y Date: 1:34 Dictated By: Deborah Herron M.D. Signed By:03/12/25 1136 DD/ 1134 TD/TT: Qc Manager: Authorizing ProviderResult TypeResult StatusCorey Marija DOCLINISYNC IMAGINGFinal Result from Last 3 Months Insurance
--- OUTSIDE RECORDS SUMMARY | 2025-03-26 07:06 | XMS_ITS | Clinical Summary ---
Author Organization [facility] Address [address] [place] [address] Care Team Providers Care Personal Lines Account Manager Name Role Phone Gregory Dutton DO Unavailable [phone] Social History Tobacco UseTypesPacks/DayYears UsedDateSmoking Tobacco: Never AssessedArea Deprivation IndexAnswerDate RecordedNational Score (1-100), lower number is lower rzvw197308/27/2022State Score (1-10), lower number is lower bghr90308/27/2022 Data from: https://www.neighborhoodatlas.[facility]/. Last address used for tciqpwwieeg[address]CommentsUnknownSex and Gender InformationValueDate RecordedSex Assigned at BirthNot on fileLegal SexFemale 06/29/2022 3:15 PM ESTGender IdentityNot on fileSexual OrientationNot on file Plan of Treatment Health MaintenanceDue DateLast DoneCommentsAnxiety Xlgamtufm60/26/2006Depression Hynzflosh73/26/2006HIV Kqkcsubpn25/26/2006Hepatitis C Replfraac43/26/2006 DTaP,Tdap,Td Vaccine (1 - Tdap)12/15/2006Hepatitis B Vaccine (1 of 3 - 19+ 3- dose series)12/15/2006Cervical Cancer Penembbxs96/26/2009HPV Vaccine (1 - 3-dose SCDM series)12/15/2014Covid-19 Vaccine (1 - 2024- season)2024Influenza Vaccine (#1)2024 Insurance Care Teams Team MemberRelationshipSpecialtyStart DateEnd Date Gregory Dutton DO [address] [place] [address] [place] [address] Ob/Gyn12/20/23
--- OUTSIDE RECORDS SUMMARY | 2025-03-26 07:06 | XMS_ITS | Patient Health Record ---
Author Organization [facility] [place] Address [address] [place] [address] Support Name Relationship Address Phone Ashley De [...]
--- OUTSIDE RECORDS SUMMARY | 2025-03-26 07:06 | XMS_ITS | Clinical Summary ---
Author Organization [employer] tem Address [id number] [address] [place] [address] Care Team Providers Care Agricultural Equipment Sales Manager Name Role Phone Dyana Velazquez APRN-ELECTRIC BATH ATTENDANT Primary Care Provide r Allergies Active AllergyReactionsCriticalityNoted [...] tablet 5Active Active Problems ProblemNoted DateDiagnosed DatePostcoital xycsjlju94/22/2023Chronic SI joint pain10/11/2022ony vpocuuprm64/22/2023Pelvic qtfaxyjdmb02/22/2023History of Wero-en-Y gastric hkcxdg7604/17/2022 Overview (04/17/2022): 03/06/21 Dr. Maza in [place] function yadvyv8410/07/2020Migraine without aura and without status migrainosus, not hsugewealvb09/20/2020Primary dcdjuicd43/20/2020Disruptions of 24 hour sleep-wake cycle03/11/2020Carpal tunnel syndrome on both sides03/11/2020 Hx of tubal cigejjdo17/31/2017 Overview (02/19/2017): 2016 PCOS (polycystic ovarian syndrome)02/19/2017 Overview (02/19/2017): Per patient report FibromyalgiaAsthma Resolved Problems ProblemNoted DateDiagnosed DateResolved DateVisual utcjtdudheo01/20/2020 12/31/2022 Encounters DateTypeDepartmentCare PrbrJwlnylvmgew62/24/2025Results Follow-Up [facility] [address] [place] [phone] Gabo Ramesh MD X-ray chest 2 views03/12/2025Orders Only [facility] [address] [place] [phone] External, Scanning Provider from Last 3 Months [...] care, and heating?Not hard at all07/09/2025PHQ-2AnswerDate RecordedTotal Xuvsu092PRAPARE - TransportationAnswerDate RecordedIn the past 12 months, [...] as a part of a household?No10/28/2024hildcareAnswer Date BoifirmeXtvqhtnvaDszmhhp46/12/2019EmploymentAnswerDate RecordedEmployment Gmqthdd9410/01/2018Hunger ScreeningAnswerDate RecordedWithin the past 12 months we worried whether our food would run out before we got money to buy more.Never True10/30/2024Within the past 12 months the food we bought just didn't last and we didn't have money to get more.Never True10/30/2024Purpose - LifeAnswerDate RecordedPurpose and direction in iacsGvpxvkm66/18/2021CommentsNoSex and Gender InformationValueDate RecordedSex Assigned at SfcvqMnzaow45/07/2023 9:43 PM ESTLegal MzwSgfmth91/06/2015 11:39 AM EDTGender DuwwgwbfEmnrjw95/07/2023 9:43 PM ESTSexual YrdozaontcfEspnpfla50/07/2023 9:43 PM ESTOccupationIndustryJob Start DateJob End DateunemployedNot on fileNot on fileNot on file Last Filed Vital Signs Vital SignReadingTime TakenCommentsBlood Ovyasrtk075/66010/30/2024 10:18 AM EDT Luhxw799910/30/2024 10:18 AM SWGDcxaokxzpdk54.8 ??C (98.2 ??F)02/14/2023 8:25 AM EDTRespiratory Usph523710/30/2024 10:18 AM EDTOxygen Bbhjxsfpnj98%10/30/2024 10:18 AM EDTInhaled Oxygen Concentration--Tsfjlh11.4 kg (131 lb)10/30/2024 10:18 AM QSGXeoxth048.5 cm (5' 2 )10/30/2024 10:18 AM EDTBody Mass Index23.9610/30/2024 10:18 AM EDT Plan of Treatment Health MaintenanceDue DateLast DoneCommentsInfluenza Tdqhivk9012/21/2024 02/06/2022, 02/01/2022, 02/22/2021, Additional history existsDTaP,Tdap and Td Vaccines (7 - Td or Tdap), 07/28/1998, 11/28/1992, Additional history existsAdult BMI Skrcmkapw14Depression Nnnlaxqua69Tobacco Kqbcwupfx05Pap Smear , 02/11/2023, 02/11/2023, Additional history exists Medical Devices Not on file Procedures Procedure NamePriorityDate/TimeAssociated DiagnosisCommentsXR CHEST 2 VWSRoutine 03/12/2025 HIGH RISK HPV W/VUVJJocxtej27/23/2023 4:46 AM EDT Pap smear, as part [...] AtPathologist SignatureHpv specimen typeThinPrep 02/12/2023 4:47 AM [facility]ITALHpv 16NegativeNegative^Negative 02/13/2023 6:03 AM [facility] 18Negative Negative^Hzrbgncu14/25/2023 6:03 AM [facility] LABOther high risk hpvNegativeNegative^Msxagfqs28/25/2023 6:03 AM [facility] LABComment: HPV types 31,33,35,39,45,52,56,58,59,66 and 68 DNA were undetectable. Specimen (Source)Anatomical Location / LateralityCollection Method / Volume Collection TimeReceived MalqTDLAP60/23/2023 4:46 AM EDT1 4:47 AM EDT Narrative Authorizing ProviderResult TypeResult StatusCoristerling Kinney MDLAB BLOOD ORDERABLESFinal ResultPerforming OrganizationAddressCity/State/ZIP CodePhone Number [facility] [address] [place] [address] [facility] [address] [place] [address], [address] [place] [address] from Last 3 Months or Most Recently Relevant to Health Maintenance Insurance Care Teams Team MemberRelationshipSpecialtyStart DateEnd Date Dyana Velazquez APRN-ELECTRIC BATH ATTENDANT [address] [place] [address] PCP - GeneralFanvly Medicine06/25/23
--- OUTSIDE RECORDS SUMMARY | 2025-03-26 07:07 | XMS_ITS | Encounter Summary ---
Author Organization [facility] Address [id number] [address] [place] [address] Care Team Providers Care Athletic Trainer Name Role Phone Dyana Velazquez APRN-SHEET METAL WORKER HELPER Primary Care Provide r Encounter Details DateTypeDepartmentCare Team (Latest Contact Info)Hckzaaqmali49/24/2025Results Follow-Up [facility] [address] [place] [address] Gabo Ramesh MD [address] [place] [address] X-ray chest 2 views Social History Tobacco UseTypesPacks/DayYears UsedDateSmoking Tobacco: FormerCigarettes Smokeless Tobacco: NeverAlcohol UseStandard Drinks/WeekCommentsNot Currently0 (1 standard drink = 0.6 oz pure alcohol)sociallyOverall Financial Resource Strain (CARDIA)AnswerDate RecordedHow hard is it for you to pay for the very basics like food, housing, medical care, and heating?Not hard at all10/28/2024PHQ-2 AnswerDate RecordedTotal Blieh014PRAPARE - TransportationAnswerDate RecordedIn the past 12 months, [...] as a part of a household?No10/28/2024 ChildcareAnswerDate FqpbuazvNuzhtbhgcNayzszk69/12/2019EmploymentAnswerDate CnijqhdzPprgzmmkkvInppuid88/12/2019Hunger ScreeningAnswerDate RecordedWithin the past 12 months we worried whether our food would run out before we got money to buy more.Never True10/30/2024Within the past 12 months the food we bought just didn't last and we didn't have money to get more.Never True10/30/2024Purpose - LifeAnswerDate RecordedPurpose and direction in dpjsBhjgomt78/18/2021 CommentsNoSex and Gender InformationValueDate RecordedSex Assigned at Oikpef0806/26/2022 9:43 PM ESTLegal FnwMlmkvr71/06/2015 11:39 AM EDTGender HckhrcumTqjwic48/07/2023 9:43 PM ESTSexual NspytovrqpjVwwomuik85/07/2023 9:43 PM ESTOccupationIndustryJob Start DateJob End DateunemployedNot on fileNot on file Not on filedocumented as of this encounter Plan of Treatment Not on file documented as of this encounter Visit Diagnoses Not on filedocumented in this encounter Additional Health Concerns AssessmentNoted TimePHQ-9 Depression Total Score: 10:19 AM EDTA Body Mass Index follow-up plan has been documented for the jlqrqff9502/11/2023 3:32 PM EDTdocumented as of this encounter Care Teams Team MemberRelationshipSpecialtyStart DateEnd Date Dyana Velazquez APRN-SHEET METAL WORKER HELPER [address] [place] [address] PCP - GeneralFamily Medicine06/25/23documented as of this encounter
--- OUTSIDE RECORDS SUMMARY | 2025-03-26 07:07 | XMS_ITS | Encounter Summary ---
Author Organization [facility] tem Address [id number] [address] [place] [address] Care Team Providers Care Gas Distribution Plant Operator Name Role Phone Dyana Velazquez APRN-GEOMORPHOLOGY TEACHER Primary Care Provide r Encounter Details DateTypeDepartmentCare Team (Latest Contact Info)Bvybzndkqoz26/21/2025Orders Only [facility] [address] [place] [address] External, Scanning Provider Social History Tobacco UseTypesPacks/DayYears UsedDateSmoking Tobacco: FormerCigarettes Smokeless Tobacco: NeverAlcohol UseStandard Drinks/WeekCommentsNot Currently0 (1 standard drink = 0.6 oz pure alcohol)sociallyOverall Financial Resource Strain (CARDIA)AnswerDate RecordedHow hard is it for you to pay for the very basics like food, housing, medical care, and heating?Not hard at all10/28/2024PHQ-2 AnswerDate RecordedTotal Kwubi640PRAPARE - TransportationAnswerDate RecordedIn the past 12 months, [...] as a part of a household?No10/28/2024 ChildcareAnswerDate DdidrggaUphhjrjlsKpzcdsm08/12/2019EmploymentAnswerDate UebwgsbfGrhqscihjbPskpwvb61/12/2019Hunger ScreeningAnswerDate RecordedWithin the past 12 months we worried whether our food would run out before we got money to buy more.Never True10/30/2024Within the past 12 months the food we bought just didn't last and we didn't have money to get more.Never True10/30/2024Purpose - LifeAnswerDate RecordedPurpose and direction in qakyQjuyyef68/18/2021 CommentsNoSex and Gender InformationValueDate RecordedSex Assigned at Xqkeeq3606/26/2022 9:43 PM ESTLegal WrrJtpekk46/06/2015 11:39 AM EDTGender EqgdlbcbGetbpq51/07/2023 9:43 PM ESTSexual JsrcitmucwwZcddkyrj64/07/2023 9:43 PM ESTOccupationIndustryJob Start DateJob End DateunemployedNot [...] follow-up plan has been documented for the cfvdjoq1402/11/2023 3:32 PM EDTdocumented as of this encounter Care Teams Team MemberRelationshipSpecialtyStart DateEnd Date Dyana Velazquez, GRETA-GEOMORPHOLOGY TEACHER [address] [place] [address] PCP - GeneralFamily Medicine06/25/23documented as of this encounter
[2025-03-26 07:10] LABS: Hematocrit 35.8 % (36.0-48.0); Hemoglobin 11.7 g/dL (12.0-16.0); Immature Granulocytes Abs Auto 0.01 10^3/uL (0.00-0.03); Immature Granulocytes Pct Auto 0.2 % (0.0-0.5); Lymphocytes Absolute Auto 2.3 10^3/uL (1.2-3.8); Mean Corpuscular HGB Conc 32.7 g/dL (29.9-35.2); Mean Corpuscular Hemoglobin 29.0 pg (26.7-34.0); Mean Corpuscular Volume 88.8 fL (81.0-99.0); Platelet Count 306 10^3/uL (150-450); Red Blood Count 4.03 10^6/uL (4.20-5.40); White Blood Count 5.8 10^3/uL (4.0-11.0)
--- NOTE | 2025-03-26 09:49 | P.ON_ITS ---
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 She was also placed in the dorsal lithotomy position. A weighted speculum was placed in the patient?s vagina. The anterior lip of the cervix was identified and grasped with a single tooth tenaculum. The patient?s uterus was then sounded roughly to [? 8] cm. The patient was then gently dilated using Hegar dilators. The hysteroscope was passed through the patient?s cervix into the uterus. Both ostia were identified. fluffy appearing endometrium. No gross evidence of malignancy, no gross evidence of polyps or fibroids. The myosure apparatus was placed through the scope, The myosure was engaged and endometrial curretting were removed along with endometrial polyp, The hysteroscope was then removed from the uterus. The endometrial curettings were sent out to pathology. The single tooth tenaculum was then removed from the patient's anterior lip of the cervix where excellent hemostasis was noted. All instruments were removed from the patient?s vagina. . A sponge stick was placed into the patient's vagina. Attention was turned to the patient's abdomen, where a small umbilical incision was made. The fascia was tented using Wander clamps and the fascia was entered sharply. Confirmation of intraabdominal placement of the 10 mm port was confirmed under direct visualization using a laparoscope. The patient's abdomen was then insufflated using CO2 gas with approximately 4 liters. A second port was placed left laterally, this was done under direct visualization with a 5 mm port. Survey of the patient's abdomen demonstrated normal liver and gallbladder. Survey of the patient's pelvic anatomy demonstrated normal appearing rt and lt ovary as well as normal appearing uterus. partial tubes noted with suspicion for post tubal ligation syndrome, partial tubes removed using the ligasure. No endometrial implants could be noted, no evidence of any pelvic disease was seen, normal appearing pelvic cavity. All instruments were removed from the patient's abdomen. The patient's abdomen was deinsufflated of CO2 gas. The patient tolerated the procedure well. Sponge stick was removed from the patient's vagina. The patient's infraumbilical fascia was closed using #0 Vicryl on a GI needle. The patient's skin was closed laterally and infraumbilically using 4-0 Vicryl. The patient tolerated the procedure well. Sponge, lap and needle counts were correct x 2. The patient was taken to Recovery Room in stable condition. Anesthesia: CLARICE Surgeon: Gregory Dutton Geotechnical Department Manager: Marcia Landin Estimated blood loss (mL): 5 Pathology: other (tubes) Condition: stable Disposition: PACU Urinary Catheter Management Urinary Catheter Management Urethral: Cath placed during this visit: no
[2025-03-26] MEDS: HYDROMORPHONE HCL 0.5 MG/0.5 ML SYRINGE IV ×3 (10:19→10:36)
[2025-03-26] MEDS: HYDROCODONE/ACET 5-325 MG TABLET 1 TAB PO (11:08)
== END 2025-03-26 11:52 | disposition home or self-care (01) ==
PROVIDERS: PCP Nurse Practitioner Family; Visit Provider Obstetrics & Gynecology
PROC: (CPT 840; principal; 2025-03-26 08:25)
DX: N92.0 Excessive and frequent menstruation with regular cycle (principal); R10.20 Pelvic and perineal pain unspecified side; N84.0 Polyp of corpus uteri; N83.8 Other noninflammatory disorders of ovary, fallopian tube and broad ligament; Z90.49 Acquired absence of other specified parts of digestive tract; Z98.84 Bariatric surgery status; Z98.51 Tubal ligation status; F17.290 Nicotine dependence, other tobacco product, uncomplicated; J45.909 Unspecified asthma, uncomplicated; M79.7 Fibromyalgia; K44.9 Diaphragmatic hernia without obstruction or gangrene; F41.9 Anxiety disorder, unspecified; F32.A Depression, unspecified; F43.10 Post-traumatic stress disorder, unspecified
CPT/HCPCS: 58558; 58661; 36415; 84702; 85025; 88302; 88305; J0131; J1100; J1171; J2250; J2371; J2405; J2704; J3010

== ENCOUNTER 2025-04-07 20:17 | Outpatient (REF) | payer OTHER, SELFPAY ==
--- OUTSIDE RECORDS SUMMARY | 2024-10-26 04:45 | XMS_ITS | Continuity of Care Document ---
Author Organization [facility] Address [address] [place] [address] [facility] [place] [address] Phone Care Team Providers Care Cereal Supervisor Name Role Phone Nano Trevizo CNP Unavailable Unavailable Allergies, Adverse Reactions, Alerts Substance Reaction Status Criticality No Known Allergies Active No Inform ation Medications Medication Instructions Dosage Dose Quantity Effective Dates (start - stop) Status Indication Fill Status Comments Tylenol 325 mg tablet take 2 tablet by oral route every 6 hours as needed 650 MG 2 tablet 4 - Active Procedures Procedure Date OFFICE/OUTPATIENT VISIT, EST OFFICE/OUTPATIENT VISIT, EST Advance Directives Directive Yes / No Effective Date File Name No Information Encounters Encounter Description Practice Location Reason(s) For Visit Diagnoses Date Provider Encounter Disposition OFFICE/OUTPA TIENT VISIT, EST [facility], [address] [facility] [place], [id number] , [place] tel:[phone] [facility] No Information 5 Joseline Mcgill. [address] [facility] [address], [place], [place], [id number], [place]. tel:[phone] [facility], [address] [place] [address] B, [place], [place], [id number] , [place] tel:[phone] [facility] General Surgery panniculitis affecting back (chief complaint) Panniculitis affecting regions of neck and back, site unspErythema intertrigo 4 Matty Jaquez. [address] [facility] [address], [place], [place], [id number], [place]. tel:[phone] [facility], [address] [place] [address] [address], [place], [place], [id number] , [place] tel:[phone] [facility] No Information 3 Joseline Mcgill. [address] [facility] [address], [place], [place], [id number], [place]. tel:[phone] [facility], [address] [place] [address] [address], [place], [place], [id number] , [place] tel:[phone] [facility] No Information 3 Ramón Paez. [address] [place] [address] [address], [place], [place], [id number], [place]. tel:[phone] [facility], [address] [place] [address] [address], [place], [place], [id number] , [place] tel:[phone] [facility] No Information 2 Joseline Mcgill. [address] [place] [address] [address], [place], [place], [address], [place]. tel:[phone] [facility], [address] [place] [address] [address], [place], [place], [id number] , [place] tel:[phone] [facility] No Information 2 Ramón Paez. [address] [place] [address] [address], [place], [id number], [place]. tel:[phone] [facility], [address] [place] [address] [address], [place], [id number] , [place] tel:[phone] [facility] No Information 2 Link Vázquez. [address] [place] [address] [address], [place], [place], [id number], [place]. tel:[phone] [facility], [address] [place] [address] [address], [place], [place], [address] , [place] tel:[phone] [facility] No Information 2 Ramón Paez. [address] [place] [address] [address], [place], [place], [address], [place]. tel:[phone] [facility], [address] [place] [address] [address], [place], [place], [id number] , [place] tel:[phone] [facility] No Information Eulogio-2 2 Ramón Paez. [address] [facility] [employer] [facility] [address], [place], [place], [id number], [place]. tel:[phone] [facility], [address] [place] [address] [address], [place], [place], [id number] , [place] tel:[phone] [facility] No Information 2 Ramón Paez. [address] [employer] [address], [place], [place], [address], [place]. tel:[phone] [facility], [address] [place] [address] [address], [place], [place], [id number] , [place] tel:[phone] [facility] No Information 0 2 Ramón Paez. [address] [place] [address] [address], [place], [place], [id number], [place]. tel:[phone] [facility], [address] [place] [address] [address], [place], [place], [address] , [place] tel:[phone] [facility] No Information 0 2 Link Vázquez. [address] [employer] [address], [place], [place], [address], [place]. tel:[phone] [facility], [address] [place] [address] [address], [place], [place], [address] , [place] tel:[phone] [facility] No Information 2 Ramón Paez. [address] [employer] [address], [place], [place], [address], [place]. tel:[phone] [address] [place] [address] [address], [place], [place], [address] , [place] tel:[phone] [facility] No Information 2 Ramón Paez. [address] [facility] [address], [place], [place], [address], [place]. tel:[phone] [facility], [address], [facility] [place], [address] , [place] tel:[phone] [facility] No Information 2 Ramón Paez. [address] [facility] [address], [facility] [place], [address], [place]. tel:[phone] [facility], [address], [facility] [place], [id number] , [place] tel:[phone] [facility] No Information 2 Ramón Paez. [address] [facility] [address], [place], [place], [address], [place]. tel:[phone] [facility], [address] [place] [address] [address], [place], [address] , [place] tel:[phone] [facility] No Information 2 Ramón Paez. [address] [facility] [address], [facility] [place], [address], [place]. tel:[phone] [facility], [address] [facility] [address], [place], [place], [address] , [place] tel:[phone] [facility] No Information 2 Link Vázquez. [address] [facility] [address], [place], [place], [address], [place]. tel:[phone] [employer] [facility], [address] [place] [address] [address], [place], [address] , [place] tel:[phone] [facility] No Information 2 Joseline Mcgill. [address] [facility] [address], [place], [place], [address], [place]. tel:[phone] [facility], [address] [place] [address] [address], [place], [place], [address] , [place] tel:[phone] [facility] No Information 2 Link Vázquez. [address], [place], [place], [address], [place]. tel:[phone] [facility], [address], [place], [place], [address] , [place] tel:[phone] [facility] No Information 2 Link Vázquez. [address], [place], [place], [address], [place]. tel:[phone] [facility], [address], [place], [place], [address] , [place] tel:[phone] [facility] No Information 2 Link Vázquez. [address], [place], [place], [address], [place]. tel:[phone] [address] [place] [address] Road [address], [place], [place], [address] , [place] tel:[phone] [facility] No Information 2 Joseline Mcgill. [address] [facility] [address] [facility] [address], [place], [place], [address], [place]. tel:[phone], [facility] [address], [place], [place], [address] , [place] tel:[phone] [facility] No Information 1 Joseline Mcgill. [address], [place], [place], [address], [place]. tel:[phone], [facility] [address], [place], [place], [address] , [place] tel:[phone] [facility] No Information 1 Joseline Mcgill. [address], [place], [place], [address], [place]. tel:[phone] [address] [place] [address] Road [address], [place], [address] , [place] tel:[phone] [facility] IP No Information 1 Joseline Mcgill. [address] [facility] [address], [place], [address], [place]. tel:[phone] [facility], [address] [place] [address] [address], [place], [address] , [place] tel:[phone] [facility] No Information 1 Link Gurpreet. [address] [facility] [address], [place], [place], [address], [place]. tel:[phone] [facility], [address] [place] [address] [address], [place], [place], [address] , [place] tel:[phone] [facility] No Information 1 Link Gurpreet. [address] [facility] [address], [place], [place], [address], [place]. tel:[phone] [facility], [address] [place] [address] [address], [place], [address] , [place] tel:[phone] [facility] No Information 1 Reg Mckeon. [address] [facility] [address], [place], [place], [address], [place]. tel:[phone] [facility], [address] [place] [address] [address], [place], [place], [address] , [place] tel:[phone] [facility] No Information 1 Link Vázquez. [address] [facility] [address], [place], [place], [address], [place]. tel:[phone] Family History Family Member Type Diagnosis Age At Onset No Information Payers Payer name Insurance type Identifiers Authorization(s) Com ernesto REED CI er ID: [id number] Name: Coverage Status Eligibility Check on: UnknownRelationship to Subscriber: selfPayer Address: [facility] [id number], [place], [address], [facility] Phone: [place] [employer] CI criber ID: [id number] p Name: Coverage Status Eligibility Check on: UnknownRelationship to Subscriber: selfPayer Address: [facility] [address], [place], [place], [address], [facility] Phone: [phone] Social History Type Description Quantity Date Captured Comments Sex Female Smoking Status No Information Current Gender Female (finding) Chief Complaint And Reason For Visit No Information History Of Present Illness Encounter Date Complaint History Of Prese nt Illness panniculitis affecting back Tiff any is a very pleasant 37female who was referred to me for panniculectomy after massive weight loss. She has done a fantastic job losing a very large amount weight. Bariatric surgery was completed greater than 18 months ago. Patient has remained at a stable weight for greater than 6 months. Abdominal pannus hangs below the level of the pubis. This is hindering her further weight loss and exercise goals. Unfortunately due to current nicotine use in the form of vaping she is not a candidate for panniculectomy at this time. I have discussed that I perform cotinine testing on all of my patients. I will plan on ordering cotinine test today and in three months. Once the cotinine test is negative I have instructed her to call the office to schedule another visit. Functional Status Date Description Comments No Information Instructions Date Instruction Additional Infor mation No Information Assessments Type Assessment Date No Information
--- OUTSIDE RECORDS SUMMARY | 2025-04-07 13:00 | XMS_ITS | Encounter Summary ---
Author Organization [facility] Address [address] [place] [address] Care Team Providers Care Pediatric Oncology Nurse Name Role Phone Unavailable Primary Care Provider Unavailabl e Reason for Visit * ReasonCommentsGynecologic Exam Encounter Details DateTypeDepartmentCare Team (Latest Contact Info)Muxponnhvxg93/17/2025 1:00 PM ESTOffice Visit [facility] [address] [place] [address] Gregory Dutton DO [address] [place] [address] Well woman exam with routine gynecological exam; Constipation, unspecified constipation type Social History Tobacco UseTypesPacks/DayYears UsedDateSmoking Tobacco: Every DaySmokeless Tobacco: CurrentAlcohol UseStandard Drinks/WeekCommentsNot Currently0 (1 standard drink = 0.6 oz pure alcohol)CommentsNoSex and Gender InformationValueDate RecordedSex Assigned at BirthNot on fileLegal SexFemale 02/18/2023 9:05 AM EDTGender IdentityNot on fileSexual OrientationNot on file documented as of this encounter Last Filed Vital Signs Vital SignReadingTime TakenCommentsBlood Vubvucqh996/6804/07/2025 1:30 PM EST Pulse--Temperature--Respiratory Rate--Oxygen Saturation--Inhaled Oxygen Concentration--Csivmf46 kg (141 lb)04/07/2025 1:30 PM ESTHeight--Body Mass Index --documented in this encounter Progress Notes * Deborah Arias LPN - 04/07/2025 1:00 PM EST Reason for Appointment: Patient ID: Ashley Pollock is a 39 y.o. female who presents for Gynecologic Exam Patient presents today for Annual Exam. MEDICATIONS Current Outpatient Medications Medication Instructions cetirizine [...] Respiratory: Negative. Cardiovascular: Negative. Gastrointestinal: Negative. Genitourinary: Negative. Musculoskeletal: Negative. Skin: Negative. Neurological: Negative. All other systems reviewed and are negative. Hematological: Negative. Endocrine: Negative. Allergic/Immunologic: Negative. OBJECTIVE Objective: Physical Exam Constitutional: Appearance: Normal appearance. She is well-developed. Genitourinary: Vulva normal. Breasts: Breasts are soft. Right: Normal. Left: Normal. Cardiovascular: Rate and Rhythm: Normal rate and [...] nursing note reviewed. Exam conducted with a entrepreneur present. Vitals: There is no height or weight on file to calculate BMI. BP: 112/68 No LMP recorded. ASSESSMENT & PLAN ICD-10-CM 1. Well woman exam with routine gynecological exam Z01.419 Pap Smear HPV DNA probe, amplified Orders Placed This Encounter Procedures HPV DNA probe, amplified Annual Wellness Exam: Patient presents today for routine annual exam. Patient states she has complaints of pain on incision. Patients vitals were reviewed and within normal limits. Growth and development is noted to be appropriate for age. Menstrual history is noted to be regular with no concerns reported. No mental health concerns was expressed. Pap Smear: Speculum was inserted into the vagina and pap was obtained without difficulty. HPV testing was performed per age guideline. Patient was advised that pap results could take anywhere from 7 to 10 days to receive and our office will reach out to the patient with those once we have them. Patient can also view results via [facility]. I reinforced importance of condom use for STI prevention. Patient declined cultures to be performed with today's visit. Breast Exam: Upon examination, clinical breast exam was noted to be normal. Patient was counseled on breast self-awareness, including the importance of knowing what is normal for her own breasts and promptly reporting any changes such as new lumps, skin dimpling, nipple discharge, or pain. Screening mammogram recommended annually beginning at age 40 or earlier if risk factors are present. Discussed signs and symptoms of breast cancer and when to seek medical attention. Answered all patient questions. Contraceptive Counseling (if applicable): Patient is currently using tubal as a form of contraceptive. Follow Up: Patient is to return to our office in one year for annual exam unless needed otherwise. .Post Op Follow Up: Patient presents today for a postop follow up after having a dx lap D&C Hysteroscopy performed at [facility] with Dr. Dutton. Pathology results was reviewed with the patient in great detail and all restrictions have been lifted. Rx for dulcolax supp faxed to pharmacy for Documented by Deborah Arias LPN on behalf of: Gregory Dutton DO documented in this encounter Plan of Treatment NameTypePriorityAssociated DiagnosesOrder SchedulePap SmearPathology and CytologyRoutine Well woman exam with routine gynecological exam Ordered: 04/07/2025HPV DNA probe, amplifiedMicrobiologyRoutine Well woman exam with routine gynecological exam Ordered: 04/07/2025documented as of this encounter Visit Diagnoses Diagnosis Well woman exam with routine gynecological exam Routine gynecological examination Constipation, unspecified constipation type documented in this encounter
--- OUTSIDE RECORDS SUMMARY | 2025-04-07 20:21 | XMS_ITS | Patient Health Record ---
Author Organization [facility] Address [address] [place] [address] [address] [place] [address] Care Team Providers Care Process Control Operator Name Role Phone LYRIC HENRY Unavailable [phone] Gurpreet Maza Unavailable Unavailable Allergies Allergen (clinical [...] Notes Problem Polycystic ovary syn drome (disorder) (734705194) Polycystic ovarian syndrome (E28.2) ActiveconfirmedProblemFibromyalgia (674650446)Fibromyalgia (M79.7)Active confirmedProblemIdentification of preoperative respiratory status (784005567) Encounter for preprocedural respiratory examination (Z01.811)Activeconfirmed ProblemObstructive sleep apnea syndrome (13723610)LILI (obstructive sleep apnea) (G47.33)ActiveconfirmedProblemAsthma (654997412)Asthma (J45.909)Activeconfirmed ProblemGastroesophageal reflux disease (723121217)GERD without esophagitis (K21.9)Activeconfirmed Plan Of Treatment Pending Test Test Name Order Date CPAP/BIPAP/ASV Titration 01/12/2021 Insurance Providers Payer Name Payer Address Payer Phone Subscriber Number Group Number Insured Name Patient Relationship to Insured Coverage Start Date Coverage End Date [facility] [address] [place] [phone] [id number], TiffanySelf - patient is the insured Medical (General) History Medical History History ICD Code Polycystic ovarian syndrome E28.2 GERD without esophagitis K21.9 Fibromyalgia M79.7 Encounter for preprocedural respiratory examination Z01.811 Asthma J45.909 LILI (obstructive sleep apnea) G47.33 Surgical History Surgery Date(Month/Year) Tubal Ligation
--- OUTSIDE RECORDS SUMMARY | 2025-04-07 20:21 | XMS_ITS | Encounter Summary ---
Author Organization [facility] Address [address] [place] [address] Care Team Providers Care Scrap Charger Name Role Phone Unavailable Primary Care Provider Unavailabl e Encounter Details DateTypeDepartmentCare Team (Latest Contact Info)Zhjvthlsikq01/05/2025bstract [facility] [address] [place] [address] Gregory Dutton DO [address] [facility] [address] [place], [facility] Social History Tobacco UseTypesPacks/DayYears UsedDateSmoking Tobacco: Every [...]
--- OUTSIDE RECORDS SUMMARY | 2025-04-07 20:21 | XMS_ITS | Encounter Summary ---
Author Organization [facility] Address [address] [place] [address] Care Team Providers Care Welding Equipment Repairer Supervisor Name Role Phone Unavailable Primary Care Provider Unavailabl e Encounter Details DateTypeDepartmentCare Team (Latest Contact Info)Lwdabhpkhvd05/17/2025amboo flowsheet [facility] [address] [place] [phone] Gregory Dutton DO [address] [facility] [address] [place] [address] Social History Tobacco UseTypesPacks/DayYears UsedDateSmoking Tobacco: Every [...]
--- OUTSIDE RECORDS SUMMARY | 2025-04-07 20:21 | XMS_ITS | Clinical Summary ---
Author Organization [facility] Address [address] [place] [address] Care Team Providers Care Prestidigitator Name Role Phone Unavailable Primary Care Provider [...] mouth 3 (three) times a day as radbvi514Active midodrine (Proamatine) 5 MG tablet Take 5 mg by mouth in the morning and 5 mg at noon and 5 mg in the evening. 5Active Vraylar 1.5 MG capsule 5Active escitalopram (Lexapro) 5 MG tablet 5Active bisacodyl (Dulcolax) 10 MG suppository Indications:Constipation, unspecified constipation typeInsert 1 suppository (10 mg) into the rectum Daily for 4 days 4 suppository 5Active Encounters DateTypeDepartmentCare EbebQwtbchstnnd47/17/2025 1:00 PM ESTOffice Visit NOMAriella Martinez [facility] [address] [place] [address] [place] [phone] Helena Dutton, DO Well woman exam with routine gynecological exam; Constipation, unspecified constipation type04/07/2025amboo flowsheet [facility] [place] [facility] [address] [place] [address] Helena Dutton, DO 03/26/2025bstract [facility] [place] [facility] [address] [place] [address] Helena Dutton, DO 5Clinisync Result Encounter [facility] External Department Unsolicited Helena Dutton, DO 5Clinisync Result Encounter [facility] External Department Unsolicited Helena Dutton, DO 03/01/2025 10:40 AM ESTConsult [facility] [address] [place] [address] Helena Dutton, DO Pre-op examination; Menorrhagia with regular cycle; Pelvic pain in female; Abdominal pain, unspecified abdominal feynerex59/10/2025amboo flowsheet [facility] [place] [facility] [address] [place] [address] Helena Dutton, DO 02/01/2025 8:30 AM EDTOffice Visit [facility] [place] [facility] [address] [place] [address] Karena Alvares PA Menorrhagia with regular cycle02/01/2025amboo flowsheet [facility] [address] [place] [address] [...] InformationValueDate RecordedSex Assigned at BirthNot on fileLegal GuvHsgrav73/30/2023 9:05 AM EDTGender Identity Not on fileSexual OrientationNot on file Last Filed Vital Signs Vital SignReadingTime TakenCommentsBlood Ivezlppw066/6804/07/2025 1:30 PM EST Pulse--Temperature--Respiratory Rate--Oxygen Saturation--Inhaled Oxygen Concentration--Grkfjb98 kg (141 lb)04/07/2025 1:30 PM ESTHeight--Body Mass Index -- Plan of Treatment Not on file Procedures Procedure NamePriorityDate/TimeAssociated DiagnosisCommentsTBH PREG QUANT HCG Zgmjcqb4403/26/2025 7:07 AM EST ALL CBC WITH AUTO UDLBMidxpfq32/05/2025 7:07 AM EST XR CHEST 2V105/12/2024 11:34 AM EST from Last 3 Months Results * [facility]H PREG QUANT HCG (03/26/2025 7:07 AM EST)ComponentValueRef RangeTest Method Analysis TimePerformed AtPathologist SignatureHCG QUANTITATIVE<1mIU/mLTBH Comment: 5-50 ? 0.2-1 WEEK 50-500 ? 1-2 WEEKS 100-5,000 ?2-3 WEEKS 500-10,000 ? 3-4 WEEKS 1,000-50,000 ?? 4-5 WEEKS 10,000-100,000 5-6 WEEKS 15,000-200,000 6-8 WEEKS 10,000-100,000 2-3 MONTHS Specimen (Source)Anatomical Location / LateralityCollection Method / Volume Collection TimeReceived Time03/26/2025 7:07 AM EST03/26/2025 7:07 AM EST Narrative [facility] - 03/26/2025 7:32 AM EST Authorizing ProviderResult TypeResult StatusCorey Marija DOCLINISYNCFinal Result Performing OrganizationAddressCity/State/ZIP CodePhone Number [facility] TB * (ABNORMAL) ALL CBC WITH AUTO DIFF (03/26/2025 7:07 AM EST)ComponentValueRef RangeTest MethodAnalysis TimePerformed AtPathologist SignatureTBH WBC5.84.0 - 11.0 10 3/uLTBHTBH RBC4.03(L)4.20 - 5.40 10 6/uLTBHTBH HGB11.7(L)12.0 - 16.0 g/dLTBHTBH HCT35.8(L)36.0 - 48.0 %TBHTBH MCV88.881.0 - 99.0 fLTBHTBH MCH29.0 26.7 - 34.0 pgTBHTBH MCHC32.729.9 - 35.2 g/dLTBHTBH RDW13.111.0 - 15.0 %TBHTBH OOJ117286 - 450 10 3/uLTBHTBH MPV10.19.5 - 13.5 fLTBHNEUTROPHILS PERCENT AUTO 48.543.0 - 75.0 %TBHLYMPHOCYTES PERCENT AUTO38.920.5 - 60.0 %TBHMONOCYTES PERCENT AUTO9.21.7 - 12.0 %TBHTBH EO %2.20.9 - 7.0 %TBHBASOPHILS PERCENT AUTO 1.00.2 - 2.0 %TBHIMMATURE GRANULOCYTES PCT AUTO0.20.0 - 0.5 %TBHNEUTROPHILS ABSOLUTE AUTO2.81.4 - 6.5 10 3/uLTBHLYMPHOCYTES ABSOLUTE AUTO2.31.2 - 3.8 10 3/uLTBHMONOCYTES ABSOLUTE AUTO0.50.3 - 0.8 10 3/uLTBHTBH EO #0.10.0 - 0.7 10 3/uLTBHBASOPHILS ABSOLUTE AUTO0.10.0 - 0.1 10 3/uLTBHIMMATURE GRANULOCYTES ABS AUTO0.010.00 - 0.03 10 3/uLTBHSpecimen (Source)Anatomical Location / LateralityCollection Method / VolumeCollection TimeReceived Time03/26/2025 7:07 AM EST03/26/2025 7:07 AM EST Narrative [facility] - 03/26/2025 7:14 AM EST Authorizing ProviderResult TypeResult StatusCorey Marija DOCLINISYNCFinal Result Performing OrganizationAddressCity/State/ZIP CodePhone Number [facility] * XR CHEST 2V (03/12/2025 11:34 AM EST)Anatomical RegionLateralityModalityOther Specimen (Source)Anatomical Location / LateralityCollection Method / Volume Collection TimeReceived Time03/12/2025 11:34 AM EST Narrative 03/12/2025 11:36 AM EST [facility] ?[address] ? [place], [place] [address] ?XRay Report ? Signed ? Patient: ICKES,ASHLEY ? MR#: [id number] ?? : 1985 ?Acct:[id number] ?? Age/Sex: 39 / F ?ADM Date: 03/12/25 ?? Loc: PST ? Attending Dr: Helena Dutton D.O. ? Ordering Physician: Helena Dutton D.O. ?? Date of Service: 03/12/25 ?? Procedure(s): XR chest 2V ?? Accession Number(s): [id number] ? cc: Helena Dutton D.O.; Dyana Velazquez NP ? [facility] ? [address] ? [place] [address] ? Patient Name: ?? ASHLEY ??ICKES ? MRN: [facility]:[id number] ? date: 1985 ?Sex: F ?? Assigned Patient Location: SURGOUT ?? Current Patient Location: SURGOUT ?? Accession/Order Number: [id number] ?? Exam Date: 03/12/2025 ??11:22 ?Report Date: [...] M.D. ??03/12/2025 11:34 AM ? Dictation Location: [facility]--02 ? Electronically authenticated by: [id number] ??Y ?? Date: 03/12/2025 ??11:34 ? Dictated By: ?Deborah Herron M.D. ? Signed By: ?03/12/256 ? DD/ 1134 ? TD/TT: ? Child Care Associate: Procedure Note Radiology, Radiologist, MD - 03/12/2025 [place] [address] XRay Report Signed Patient: ANI OATES#: [id number] : 1985Acct:[id number] Age/Sex: 39 / FADM Date: 03/12/25 Loc: [facility] Attending Dr: Helena Dutton D.O. Ordering Physician: Helena Dutton D.O. Date of Service: 03/12/25 Procedure(s): XR chest 2V Accession Number(s): [id number] cc: Helena Dutton D.O.; Dyana Velazquez NP The [place] [id number] Patient Name: ASHLEY OATES MRN: [facility]:[id number] date: 1985 Sex: F Assigned Patient Location: [facility] Current Patient Location: [facility] Accession/Order Number: [id number] Exam Date: 03/12/2025 11:22 Report Date: 03/12/2025 [...] Herron M.D. 03/12/2025 11:34 AM Dictation Location: [place] [address] Electronically authenticated by: [id number] Y Date: 1:34 Dictated By: Deborah Herron M.D. Signed By:03/12/25 1136 DD/ 1134 TD/TT: Child Care Associate: Authorizing ProviderResult TypeResult StatusCorey Marija DOCLINISYNC IMAGINGFinal Result from Last 3 Months Insurance
--- OUTSIDE RECORDS SUMMARY | 2025-04-07 20:21 | XMS_ITS | Clinical Summary ---
Author Organization [employer] tem Address [facility] [id number] [address] [place] [address] Care Team Providers Care Tower Hand Name Role Phone Dyana Velazquez APRN-IDEA MAN Primary Care Provide r Allergies Active AllergyReactionsCriticalityNoted [...] tablet 5Active Active Problems ProblemNoted DateDiagnosed DatePostcoital ymemapos32/22/2023Chronic SI joint pain10/11/2022ony rssagxxcp28/22/2023Pelvic yvtxxmiegv63/22/2023History of Wero-en-Y gastric cwhahv0204/17/2022 Overview (04/17/2022): 03/06/21 Dr. Maza in [place] Platelet function flpgxn5210/07/2020Migraine without aura and without status migrainosus, not luklhgkmejo31/20/2020Primary ypcveqvy70/20/2020Disruptions of 24 hour sleep-wake cycle03/11/2020Carpal tunnel syndrome on both sides03/11/2020 Hx of tubal xnvtucwe96/31/2017 Overview (02/19/2017): 2016 PCOS (polycystic ovarian syndrome)02/19/2017 Overview (02/19/2017): Per patient report FibromyalgiaAsthma Resolved Problems ProblemNoted DateDiagnosed DateResolved DateVisual luhwwnzwhle41/20/2020 12/31/2022 Encounters DateTypeDepartmentCare VyrpBytkqztdyip56/24/2025Results Follow-Up [facility] [address] [place] [phone] Gabo Ramesh MD X-ray chest 2 views03/12/2025Orders Only [facility] [address] [place] [address] External, Scanning Provider from Last 3 Months [...] care, and heating?Not hard at all07/09/2025PHQ-2AnswerDate RecordedTotal Jrhmu547PRAPARE - TransportationAnswerDate RecordedIn the past 12 months, [...] as a part of a household?No10/28/2024hildcareAnswer Date XsaqthbyUuhihpeduApsxezq70/12/2019EmploymentAnswerDate RecordedEmployment Qfxguag9810/01/2018Hunger ScreeningAnswerDate RecordedWithin the past 12 months we worried whether our food would run out before we got money to buy more.Never True10/30/2024Within the past 12 months the food we bought just didn't last and we didn't have money to get more.Never True10/30/2024Purpose - LifeAnswerDate RecordedPurpose and direction in molqDfkzgao04/18/2021CommentsNoSex and Gender InformationValueDate RecordedSex Assigned at LcqucNbiyim04/07/2023 9:43 PM ESTLegal LfuIlrjur85/06/2015 11:39 AM EDTGender JdnquxqyBjcxdh41/07/2023 9:43 PM ESTSexual CiythinjuexKqlszabk81/07/2023 9:43 PM ESTOccupationIndustryJob Start DateJob End DateunemployedNot on fileNot on fileNot on file Last Filed Vital Signs Vital SignReadingTime TakenCommentsBlood Anzrqztx296/66010/30/2024 10:18 AM EDT Ejogi676310/30/2024 10:18 AM MOOJksgwavhupy62.8 ??C (98.2 ??F)02/14/2023 8:25 AM EDTRespiratory Eolc206910/30/2024 10:18 AM EDTOxygen Waodgavgud84%10/30/2024 10:18 AM EDTInhaled Oxygen Concentration--Uhfsuu33.4 kg (131 lb)10/30/2024 10:18 AM VXVClqrxn398.5 cm (5' 2 )10/30/2024 10:18 AM EDTBody Mass Index23.9610/30/2024 10:18 AM EDT Plan of Treatment Health MaintenanceDue DateLast DoneCommentsInfluenza Ysfuprc1512/21/2024 02/06/2022, 02/01/2022, 02/22/2021, Additional history existsDTaP,Tdap and Td Vaccines (7 - Td or Tdap), 07/28/1998, 11/28/1992, Additional history existsAdult BMI Hwrlntraj67Depression Cureduqkd11Tobacco Qzypjjmnr35Pap Smear , 02/11/2023, 02/11/2023, Additional history exists Medical Devices Not on file Procedures Procedure NamePriorityDate/TimeAssociated DiagnosisCommentsXR CHEST 2 VWSRoutine 03/12/2025 HIGH RISK HPV W/MFRNTokukkf63/23/2023 4:46 AM EDT Pap smear, as part [...] AtPathologist SignatureHpv specimen typeThinPrep 02/12/2023 4:47 AM EDTFMER[facility]ENTERHpv 16NegativeNegative^Negative 02/13/2023 6:03 AM [facility] LABHpv 18Negative Negative^Obtptlxw94/25/2023 6:03 AM [facility] LABOther high risk hpvNegativeNegative^Dsqtapro16/25/2023 6:03 AM [facility] LABComment: HPV types 31,33,35,39,45,52,56,58,59,66 and 68 DNA were undetectable. Specimen (Source)Anatomical Location / LateralityCollection Method / Volume Collection TimeReceived RrgiCWPRF43/23/2023 4:46 AM EDT1 4:47 AM EDT Narrative Authorizing ProviderResult TypeResult StatusCoristerling Kinney MDLAB BLOOD ORDERABLESFinal ResultPerforming OrganizationAddressCity/State/ZIP CodePhone Number [facility] [address] [facility] [place] [address] [facility] [address] [place] [address], [address] [place] [address] from Last 3 Months or Most Recently Relevant to Health Maintenance Insurance Care Teams Team MemberRelationshipSpecialtyStart DateEnd Date Dyana Velazquez APRN-IDEA MAN [address] [place] [address] PCP - GeneralFactly Medicine06/25/23
--- OUTSIDE RECORDS SUMMARY | 2025-04-07 20:21 | XMS_ITS | Patient Health Record ---
Author Organization [facility] in [place] Address [address] [place] [address] Support Name Relationship Address Phone Ashley De La Cruz Guarantor Unknown [phone] Reason For Referral No Information Immunizations Vaccine [...]
--- OUTSIDE RECORDS SUMMARY | 2025-04-07 20:21 | XMS_ITS | Encounter Summary ---
Author Organization [facility] Address [address] [place] [address] Care Team Providers Care Vice President Marketing & Development Name Role Phone Unavailable Primary Care Provider Unavailabl e Encounter Details DateTypeDepartmentCare Team (Latest Contact Info)Vxdvsilpaum59/05/2025linisync Result Encounter [facility] External Department Unsolicited Gregory Dutton, DO [address] [place], [place] [id number] Social History Tobacco UseTypesPacks/DayYears UsedDateSmoking Tobacco: Every DaySmokeless Tobacco: CurrentAlcohol UseStandard Drinks/WeekCommentsNot Currently0 (1 standard drink = 0.6 oz pure alcohol)CommentsNoSex and Gender InformationValueDate RecordedSex Assigned at BirthNot on fileLegal SexFemale 02/18/2023 9:05 AM EDTGender IdentityNot on fileSexual OrientationNot on file documented as of this encounter Plan of Treatment Not on file documented as of this encounter Procedures Procedure NamePriorityDate/TimeAssociated DiagnosisCommentsTBH PREG QUANT HCG Bmsdgzn1703/26/2025 7:07 AM EST ALL CBC WITH AUTO JPZEFkgzwyf88/05/2025 7:07 AM EST documented in this encounter Results * [facility] PREG QUANT HCG (03/26/2025 [...] Marija DOCLINISYNCFinal Result Performing OrganizationAddressCity/State/ZIP CodePhone Number [facility] * (ABNORMAL) ALL CBC WITH AUTO DIFF (03/26/2025 7:07 AM EST)ComponentValueRef RangeTest MethodAnalysis TimePerformed AtPathologist SignatureTBH WBC5.84.0 - 11.0 10 3/uLTBHTBH RBC4.03(L)4.20 - 5.40 10 6/uLTBHTBH HGB11.7(L)12.0 - 16.0 g/dLTBHTBH HCT35.8(L)36.0 - 48.0 %TBHTBH MCV88.881.0 - 99.0 fLTBHTBH MCH29.0 26.7 - 34.0 pgTBHTBH MCHC32.729.9 - 35.2 g/dLTBHTBH RDW13.111.0 - 15.0 %TBHTBH DHF683512 - 450 10 3/uLTBHTBH MPV10.19.5 - 13.5 [...] DOCLINISYNCFinal Result Performing OrganizationAddressCity/State/ZIP CodePhone Number [facility] documented in this encounter Visit Diagnoses Not on filedocumented in this encounter
== END 2025-04-07 20:18 | disposition home or self-care (01) ==
LOC: LAB 20:17
PROVIDERS: PCP Nurse Practitioner Family; Visit Provider Obstetrics & Gynecology
DX: Z01.419 Encounter for gynecological examination (general) (routine) without abnormal findings (principal)
CPT/HCPCS: 88175